=== PATIENT | male | born 1965 | race Asian ===

== ENCOUNTER 2018-07-20 16:03 | Inpatient (IN) | payer OTHER ==
[~2018-07-20] VITALS: Ht 157.5 cm; Wt 54.8 kg
[2018-07-20] MEDS ORDERED: SOD CHLORIDE 0.9% 1,000 ML IV STA (17:09)
[2018-07-20] MEDS ORDERED: KETOROLAC 15 MG INJ IV STA (17:09)
[2018-07-20] MEDS ORDERED: ONDANSETRON 4 MG INJ IV STA (17:36)
--- NOTE | 2018-07-20 17:39 | ERD ---
ER Documentation Chief Complaint Chief Complaint abdominal pain - pt accidentally swallowed a (pesticide) @ 3 am HPI 52-year-old man complains of generalized abdominal pain and nausea since last night he attributes his symptoms to pesticide that was accidentally sprayed over his coffee. He drank the coffee and states his symptoms got worse after that. He also complains of dry mouth and dry throat. Patient denies sialorrhea, no difficulty swallowing, no loss of consciousness, no fevers or chills, no headache or blurry vision. Patient has a history of hypertension and is noncompliant with his medication ROS All systems reviewed and are negative except as per history of present illness. Allergies Allergies: Coded Allergies: No Known Allergy (Unverified , 07/20/18) PMhx/Soc Hypertension FmHx Family History: No diabetes Physical Exam Vitals Vital Signs Date Temp Pulse Resp B/P (MAP) Pulse Ox O2 O2 Flow FiO2 Time Delivery Rate 07/20/18 98.5 127 23 212/103 97 Nasal 21:30 (139) Cannula 07/20/18 105 25 209/117 97 Nasal 19:30 (147) Cannula 07/20/18 98.2 128 28 165/93 97 16:05 (117) Physical Exam GENERAL: Well-developed, well-nourished, appears dehydrated, afebrile HEENT: Dry mucous membranes, pink conjunctiva, no cervical spine tenderness or step-off deformities, no goiter, no jaundice or icterus, extraocular movements intact without pain. No submandibular induration, and no pharyngeal erythema NEURO: Alert and oriented 3, cranial nerves II through XII intact bilaterally, pupils equal round reactive to light, no focal deficits or facial asymmetry, sensation intact distally Strength 5/5 in upper and lower extremities bilate rally CARDIAC: Tachycardic and regular, no murmurs rubs or gallops LUNGS: Clear bilaterally no wheezing crackles or stridor ABDOMEN: Voluntary guarding, mild diffuse tenderness, no masses, no rebound, no psoas sign SKIN: Warm and dry to touch, no abrasions, contusions, or hematomas, no lacerations, no ecchymosis, no target lesions, and without ulcers EXTREMITIES: No clubbing cyanosis or edema, calves are bilaterally symmetrical, no Homans sign, no popliteal cord sign. Distal pulses equal and bilateral PSYCH: Normal affect without agitation or irritability Result Diagram: 07/20/18 1716 07/20/18 1716 Results 24 hrs Laboratory Tests Test 07/20/18 17:16 07/20/18 18:31 07/20/18 19:45 White Blood Count 24.1 10^3/ul Red Blood Count 5.91 10^6/ul Hemoglobin 17.2 g/dl Hematocrit 50.6 % Mean Corpuscular Volume 85.6 fl Mean Corpuscular Hemoglobin 29.1 pg Mean Corpuscular Hemoglobin Concent 34.0 g/dl Red Cell Distribution Width 13.7 % Platelet Count 183 10^3/UL Mean Platelet Volume 11.1 fl Immature Granulocytes % 0.700 % Neutrophils % 89.0 % Segmented Neutrophils % (Manual) 90 % Lymphocytes % 4.3 % Lymphocytes % (Manual) 4 % Monocytes % 5.8 % Monocytes % (Manual) 6 % Eosinophils % 0.0 % Basophils % 0.2 % Nucleated Red Blood Cells % 0.0 /100WBC Immature Granulocytes # 0.160 10^3/ul Neutrophils # 21.4 10^3/ul Lymphocytes (Manual) 0.9 10^3/ul Lymphocytes # 1.0 10^3/ul Monocytes # 1.4 10^3/ul Monocytes # (Manual) 1.4 10^3/ul Eosinophils # 0.0 10^3/ul Basophils # 0.1 10^3/ul Nucleated Red Blood Cells # 0.0 10^3/ul Anisocytosis 1+ Microcytosis 1+ Sodium Level 140 mmol/L Potassium Level 3.8 mmol/L Chloride Level 98 mmol/L Carbon Dioxide Level 25 mmol/L Anion Gap 17 Blood Urea Nitrogen 23 mg/dl Creatinine 1.56 mg/dl Est Glomerular Filtrat Rate mL/min 47 mL/min Glucose Level 183 mg/dl Calcium Level 10.2 mg/dl Total Bilirubin 0.9 mg/dl Direct Bilirubin 0.00 mg/dl Indirect Bilirubin 0.9 mg/dl Aspartate Amino Transf (AST/SGOT) 33 IU/L Alanine Aminotransferase (ALT/SGPT) < 6 IU/L Alkaline Phosphatase 166 IU/L Troponin I 0.062 ng/ml Total Protein 9.7 g/dl Albumin 4.9 g/dl Globulin 4.80 g/dl Albumin/Globulin Ratio 1.02 Lipase 142 U/L Ethyl Alcohol Level < 10.0 mg/dl Free Thyroxine 1.91 ng/dl Urine Opiates Screen Negative Urine Barbiturates Negative Urine Amphetamines Screen Negative Urine Benzodiazepines Screen Negative Urine Cocaine Screen Negative Urine Cannabinoids Positive Current Medications Medications Dose Sig/Loi Start Time Status Last (Trade) Ordered Route PRN Stop Time Admin Dose Reason Admin Sodium 1,000 ml @ Q1H STAT 07/20/18 DC 07/20/18 Chloride 1,000 mls/hr IV 17:09 07/20/18 17:58 18:08 Ketorolac 15 mg ONCE STAT 07/20/18 DC 07/20/18 Tromethamine IV 17:09 07/20/18 17:56 (Toradol) 17:10 Ondansetron 4 mg ONCE STAT 07/20/18 DC 07/20/18 HCl (Zofran IV 17:36 07/20/18 17:56 Inj) 17:37 Enalaprilat 1.25 mg ONCE ONCE 07/20/18 DC 07/20/18 (Vasotec Iv) IV 18:00 07/20/18 18:32 18:01 Lorazepam 0.5 mg ONCE STAT 07/20/18 DC (Ativan) IV 18:31 07/20/18 18:50 Nicardipine 30 mg ONCE ONCE 07/20/18 DC HCl PO 20:00 07/20/18 (Cardene) 20:00 Nicardipine 30 mg ONCE ONCE 07/20/18 DC 07/20/18 HCl PO 19:40 07/20/18 19:44 (Cardene) 19:41 IV Flush 3 ml PER 07/20/18 (NS 3 ml) PROTOCOL IV 21:30 Ondansetron 4 mg Q6H PRN 07/20/18 HCl (Zofran IV 21:30 Inj) NAUSEA/VOMITI NG 650 mg Q6H PRN 07/20/18 Acetaminophen PO .PAIN 1-3 21:30 (Tylenol OR TEMP Tab) 1 tab Q6H PRN 07/20/18 Acetaminophen PO .MOD PAIN 21:30 / 4-6 Hydrocodone Bitart ([place] (5/325)) Morphine 2 mg Q4H PRN 07/20/18 Sulfate IV .SEVERE 21:30 (morphine) PAIN 7-10 Docusate 100 mg Q12H PRN 07/20/18 Sodium PO 21:30 (Colace) .CONSTIPATION Magnesium 30 ml DAILY PRN 07/20/18 Hydroxide PO 21:30 (Milk Of Mag) .CONSTIPATION Heparin 5,000 unit Q12 SC 07/21/18 Sodium 09:00 (Porcine) (Heparin (5000 Units/1ml)) Sodium 1,000 ml @ [id number] IV 07/20/18 Chloride 75 mls/hr 21:11 Lorazepam 0.5 mg Q6H PRN 07/20/18 (Ativan) IV ANXIETY 21:30 Albuterol/ 3 ml Q4H RESP 07/20/18 Ipratropium THERAPY PRN 21:30 (Duoneb) HHN SHORTNESS OF BREATH Hydralazine 10 mg Q6H PRN 07/20/18 07/20/18 HCl IV ELEVATED 21:30 21:34 (Apresoline) BLOOD PRESSURE 1 tab Q5M PRN 07/20/18 Nitroglycerin SL ANGINA 21:30 (Nitroglyceri n (Sl Tab) 0.4 Mg) 150 ml @ Q24H IVPB 07/20/18 Levofloxacin/ 100 mls/hr 21:30 Dextrose Procedures/MDM IV line was established patient was placed on cardiac cath technologist rhythm strip revealed a sinus tachycardia at 130 bpm with upright P and T waves. Patient was afebrile I administered 1 L normal saline IV, Toradol 15 mg IV, Zofran 4 mg IV Chest X-ray 1V Interpreted by me: Soft Tissue: No acute abnormalities Bones: No acute abnormalities Mediastinum/Cardiac Silhouette/Lungs: No acute abnormalities CBC was normal, electrolytes revealed acute kidney injury, liver function tests were normal, troponin was negative. Urinalysis drug screen positive for cannabinoids, ethanol level negative EKG performed, read by me revealed a sinus tachycardia 125 bpm, normal axis, narrow QRS complex, no concerning ST elevations or depressions noted Patient was hypertensive and I administered enalapril 1.25 mg IV x1 later followed by nicardipine 30 mg p.o. for continued hypertension CT scan of the abdomen pelvis was performed, IMPRESSION: 1. Right testis within the right inguinal canal. Correlate for undescended or retractile testis. 2. Small bilateral nonobstructive renal stones. No hydroureteronephrosis. 3. Probable cholelithiasis. No CT evidence of acute cholecystitis. 4. No evidence of acute inflammatory changes. No evidence of bowel obstruction. 5. Infrarenal abdominal aortic aneurysm measuring up to 3.2 cm. Recommend follow-up imaging in 3 years. 6. 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 Critical Care: Time: 43 minutes, this was time separate from other billable procedures. Treatments/Evaluations: Close monitoring and treatment of unstable vital signs, cardiorespiratory, and neurologic status, while maintaining tight balance of fluid, respiratory, and cardiac interventions. Patient has lymphocytosis and continued severe elevated blood pressure and will be admitted to telemetry for continued medical management, cardiology consultation, BP control. Departure Diagnosis: Primary Impression: Acute kidney injury Additional Impressions: Hypertensive emergency Aneurysm of infrarenal abdominal aorta Leukocytosis Leukocytosis type: lymphocytosis Qualified Codes: D72.820 - Lymphocytosis (symptomatic) Rib lesion Condition: Fair COLTON ASH MD Jul 20, 2018 17:39
[2018-07-20] MEDS ORDERED: ENALAPRILAT 1.25 MG INJ IV ONE (18:00)
[2018-07-20] MEDS ORDERED: LORAZEPAM 2 MG INJ IV STA (18:31)
[2018-07-20] MEDS ORDERED: NICARDipine HCL 30 MG CAPSULE PO ONE ×2 (19:40→20:00)
[2018-07-20] MEDS ORDERED: ALBUTEROL/IPRATROPIUM (NEB) 3 ML AMP HHN PRN (21:30)
[2018-07-20] MEDS ORDERED: hydrALAzine 20 MG INJ IV PRN (21:30)
[2018-07-20] MEDS ORDERED: NITROGLYCERIN (SL) 0.4 MG TAB SL PRN (21:30)
[2018-07-20] MEDS ORDERED: MAGNESIUM HYDROXIDE 30ML CUP PO PRN (21:30)
[2018-07-20] MEDS ORDERED: NACL 0.9% 3 ML SYG IV SCH (21:30)
[2018-07-20] MEDS ORDERED: LORAZEPAM 2 MG INJ IV PRN (21:30)
[2018-07-20] MEDS ORDERED: DOCUSATE SODIUM 100 MG CAP PO PRN (21:30)
[2018-07-20] MEDS ORDERED: ACETAMINOPHEN 325 MG TAB PO PRN (21:30)
[2018-07-20] MEDS: SOD CHLORIDE 0.45% 1,000 ML IV SCH (22:37)
[2018-07-20] MEDS: LEVOFLOXACIN 750MG/D5W (PMX) 150 ML IVPB SCH (22:38)
[2018-07-20] MEDS: morphine 2 MG INJ IV PRN (22:43)
[2018-07-20] MEDS: ONDANSETRON 4 MG INJ IV PRN (22:43)
[2018-07-21] VITALS (9 sets, daily range): BP systolic 127–197; BP diastolic 83–102; PULSE 77–126; RESP 18–20; Ht 157.5 cm; Wt 54.8 kg
[2018-07-21] MEDS ORDERED: hydrALAzine 20 MG INJ ONE (04:24)
--- NOTE | 2018-07-21 04:26 | HP ---
Date/Time of Note Date/Time of Note DATE: 07/21/18 TIME: 04:17 Assessment/Plan VTE Prophylaxis SCD applied (from Nsg): No SCD contraindicated: other Pharmacological prophylaxis: heparin Lines/Catheters IV Catheter Type (from Nrs): Saline Lock Assessment/Plan Hospital Course Assessment and plan: 52-year-old man past medical history of hypertension who presents with abdominal pain, with signs of renal insufficiency, leukocytosis, and hypertensive emergency. 1. Hypertensive emergency: Again patient apparently noncompliant with his home blood pressure medicines, systolic blood pressure in the 200 range on admission -Continue hydralazine IV every 4 hours as needed systolic rate of 160, get cardiology consult, follow-up TSH, A1c, lipid panel -We will check echocardiogram and try to get patient's home medication list -We will start patient on some p.o. blood pressure medicines in the meantime 2. Leukocytosis: Chest x-ray did not show any signs of any acute infections, nor did CT scan abdomen pelvis. UA negative as well for infection -Monitor for now, consider low-dose IV fluids -Could be secondary to dehydration, follow-up CBC in the a.m. 3. Renal insufficiency: Again creatinine 1.5 range, unclear what his baseline is -Continue IV fluids, will obtain renal consult Result Diagram: 07/20/18 1716 07/20/18 1716 Results 24hrs Laboratory Tests Test 07/20/18 17:16 07/20/18 18:31 07/20/18 19:45 White Blood Count 24.1 H Red Blood Count 5.91 Hemoglobin 17.2 Hematocrit 50.6 Mean Corpuscular Volume 85.6 Mean Corpuscular Hemoglobin 29.1 Mean Corpuscular 34.0 Hemoglobin Concent Red Cell Distribution Width 13.7 Platelet Count 183 Mean Platelet Volume 11.1 H Immature Granulocytes % 0.700 H Neutrophils % 89.0 H Segmented Neutrophils % (Manual) 90 H Lymphocytes % 4.3 L Lymphocytes % (Manual) 4 L Monocytes % 5.8 Monocytes % (Manual) 6 Eosinophils % 0.0 Basophils % 0.2 Nucleated Red Blood Cells % 0.0 Immature Granulocytes # 0.160 H Neutrophils # 21.4 H Lymphocytes (Manual) 0.9 Lymphocytes # 1.0 Monocytes # 1.4 H Monocytes # (Manual) 1.4 H Eosinophils # 0.0 Basophils # 0.1 Nucleated Red Blood Cells # 0.0 Anisocytosis 1+ Microcytosis 1+ Sodium Level 140 Potassium Level 3.8 Chloride Level 98 Carbon Dioxide Level 25 Anion Gap 17 H Blood Urea Nitrogen 23 H Creatinine 1.56 H Est Glomerular Filtrat 47 L Rate mL/min Glucose Level 183 Calcium Level 10.2 Total Bilirubin 0.9 Direct Bilirubin 0.00 Indirect Bilirubin 0.9 Aspartate Amino 33 Transf (AST/SGOT) Alanine < 6 L Aminotransferase (ALT/SGPT) Alkaline Phosphatase 166 H Troponin I 0.062 Total Protein 9.7 H Albumin 4.9 Globulin 4.80 H Albumin/Globulin Ratio 1.02 Lipase 142 Ethyl Alcohol Level < 10.0 H Free Thyroxine 1.91 H Urine Color YELLOW Urine Clarity SLIGHTLY CLOUDY A Urine pH 6.0 Urine Specific [place] 1.019 Urine Ketones NEGATIVE Urine Nitrite NEGATIVE Urine Bilirubin NEGATIVE Urine Urobilinogen NEGATIVE Urine Leukocyte Esterase NEGATIVE Urine Microscopic RBC 44 H Urine Microscopic WBC 2 Urine Mucus FEW A Urine Hemoglobin 2+ H Urine Glucose 1+ H Urine Total Protein 3+ H Urine Opiates Screen Negative Urine Barbiturates Negative Urine Amphetamines Screen Negative Urine Benzodiazepines Screen Negative Urine Cocaine Screen Negative Urine Cannabinoids Positive HPI/ROS Admit Date/Time Admit Date/Time Hx of Present Illness 52-year-old man past medical history of hypertension who presents with abdominal pain. Patient also complained of nausea, both of these symptoms occurred since last night. Apparently he also stated he attributed his symptoms to pesticide t hat was accidentally sprayed over his coffee. He drank the coffee and states his symptoms got worse after that. Patient has some dry mouth and dry throat as well.. Patient denies difficulty swallowing, no loss of consciousness, no fevers or chills, no headache or blurry vision. Patient has a history of hypertension and is noncompliant with his medication. When he came into the ER today he was found with creatinine 1.56, white blood cell count 24, and he had signs of hypertensive emergency systolic blood pressure in the 200 range. He was given multiple doses of antihypertensive medicines and presently the heart rate is somewhat tachycardic, but the systolic blood pressure still hovering around 170-190 range. PMH/Family/Social Past Medical History Medications Current Medications IV Flush (NS 3 ml) 3 ml PER PROTOCOL IV ; Start 07/20/18 at 21:30 Ondansetron HCl (Zofran Inj) 4 mg Q6H PRN IV NAUSEA/VOMITING Last administered on 07/20/18 22:43; Admin Dose 4 MG; Start 07/20/18 at 21:30 Acetaminophen (Tylenol Tab) 650 mg Q6H PRN PO .PAIN 1-3 OR TEMP; Start 07/20/18 at 21:30 Acetaminophen/ Hydrocodone Bitart ([place] (5/325)) 1 tab Q6H PRN PO .MOD PAIN 4- 6; Start 07/20/18 at 21:30 Morphine Sulfate (morphine) 2 mg Q4H PRN IV .SEVERE PAIN 7-10 Last administered on 07/20/18 22:43; Admin Dose 2 MG; Start 07/20/18 at 21:30 Docusate Sodium (Colace) 100 mg Q12H PRN PO .CONSTIPATION; Start 07/20/18 at 21:30 Magnesium Hydroxide (Milk Of Mag) 30 ml DAILY PRN PO .CONSTIPATION; Start 07/20/18 at 21:30 Heparin Sodium (Porcine) (Heparin (5000 Units/1ml)) 5,000 unit Q12 SC ; Start 07/21/18 at 09:00 Sodium Chloride 1,000 ml @ 75 mls/hr [id number] IV Last administered on 07/20/18 22:37; Admin Dose 75 MLS/HR; Start 07/20/18 at 21:11 Lorazepam (Ativan) 0.5 mg Q6H PRN IV ANXIETY Last administered on 07/20/18 22:54; Admin Dose 0.5 MG; Start 07/20/18 at 21:30 Albuterol/ Ipratropium (Duoneb) 3 ml Q4H RESP THERAPY PRN HHN SHORTNESS OF BREATH; Start 07/20/18 at 21:30 Hydralazine HCl (Apresoline) 10 mg Q6H PRN IV ELEVATED BLOOD PRESSURE Last administered on 07/20/18 21:34; Admin Dose 10 MG; Start 07/20/18 at 21:30 Nitroglycerin (Nitroglycerin (Sl Tab) 0.4 Mg) 1 tab Q5M PRN SL ANGINA; Start 07/20/18 at 21:30 Levofloxacin/ Dextrose 150 ml @ 100 mls/hr Q24H IVPB Last administered on 07/20/18 22:38; Admin Dose 100 MLS/HR; Start 07/20/18 at 21:30 Coded Allergies: No Known Allergy (Unverified , 07/20/18) Past Surgical History Past Surgical Hx: no surgical history Social History Alcohol Use: none Smoking Status: Current some day smoker Drug Use: none Exam/Review of Systems Vital Signs Vitals Vital Signs Date Temp Pulse Resp B/P (MAP) Pulse Ox O2 O2 Flow FiO2 Time Delivery Rate 07/21/18 121 23 171/97 97 Nasal 01:30 (121) Cannula 07/20/18 98.5 21:30 Exam Exam GENERAL: lying in bed, lethargic HEENT: Pupils equal, round, and reactive to light. EOMI. NECK: Supple LUNGS: Clear to auscultation bilaterally HEART: Tachycardic heart rate ABDOMEN: Soft, slightly tender to palpation, non-distended. Positive bowel sounds in all four quadrants. No rebound or guarding. EXTREMITIES: No lower extremity edema bilaterally NEURO: No focal deficits EMIL DANIELS Jul 21, 2018 04:26
[2018-07-21] MEDS: hydrALAzine 20 MG INJ IV PRN ×2 (04:28→21:46)
[2018-07-21] MEDS: AMLODIPINE 10 MG TAB PO SCH (04:33)
[2018-07-21] MEDS ORDERED: LABETALOL HCL 20MG INJ IV ONE (08:00)
[2018-07-21] MEDS: SOD CHLORIDE 0.45% 1,000 ML IV SCH ×2 (09:54→23:05)
[2018-07-21] MEDS: ONDANSETRON 4 MG INJ IV PRN (09:55)
[2018-07-21] MEDS: morphine 2 MG INJ IV PRN (09:55)
[2018-07-21] MEDS: HEPARIN 5,000 UNIT/1 ML VIAL SC SCH ×2 (09:58→20:52)
--- NOTE | 2018-07-21 11:27 | CONS ---
DATE OF ADMISSION: 07/20/2018 DATE OF CONSULTATION: TYPE OF CONSULTATION: Nephrology. REASON FOR CONSULTATION: Acute kidney injury, possible CKD. REQUESTING PHYSICIAN: Emil Daniels MD. HISTORY OF PRESENT ILLNESS: This is a 52-year-old male with a past medical history of hypertension, who presents to [facility] with complaints of abdominal pain. The patient states h is symptoms began approximately 24 hours ago, which he initially attributed to accidental pesticide i ntegrated over his coffee. Patient states that he developed dry mouth. Denied any blurred vision. The patient, as a result of progression of symptoms, came to the emergency room. Upon arrival, patie nt noted to have a white count of 24,000 and creatinine 1.56. Patient has systolic pressures greater than 200. The patient was given antihypertensive medications and admitted to telemetry for evaluati on. Regarding the patient's renal history, the patient denies ever having any history of acute kidney inj ury or CKD. Patient does admit to having longstanding hypertension. Patient does not remember the l ast he went to see a physician. He denies hemoptysis, hematemesis, hematochezia. PAST MEDICAL HISTORY: History of hypertension. ALLERGIES: NO KNOWN DRUG ALLERGIES. FAMILY HISTORY: No family history of kidney disease. SOCIAL HISTORY: Does not drink, smoke, or do drugs. MEDICATIONS: The patient's medications have been reviewed. PAST SURGICAL HISTORY: Has been reviewed. REVIEW OF SYSTEMS: A 14-point review of systems was conducted. Pertinent positives stated in the HP I, otherwise negative. PHYSICAL EXAMINATION: VITAL SIGNS: Blood pressure is 197/96, respirations 20, pulse 126, temperature 98.4. HEENT: Head is normocephalic. NECK: Supple. HEART: Regular rate. LUNGS: Show diminished breath sounds at the base. ABDOMEN: Soft, nontender to palpation without rebound or guarding. EXTREMITIES: Negative for clubbing, cyanosis, no edema. DERMATOLOGIC: No rashes. MUSCULOSKELETAL: No joint effusion. NEUROLOGIC: No focal deficits. LABORATORY DATA: Has been reviewed. Urinalysis has been reviewed. CT scan of abdomen and pelvis pop s been reviewed. ASSESSMENT AND PLAN: This is a 60-year-old male who presents with: 1. Nonoliguric acute kidney injury with unknown baseline creatinine. Etiology of current acute kidn ey injury is likely secondary to hemodynamics, possible tubular injury due to hypertensive urgency. The possibility of acute glomerulonephritis or vasculitis is less likely given the patient's clinical presentation. Possibility of interstitial nephritis is a consideration given possible environmental exposure of pesticide. Our recommendation at this point would be to repeat a UA with microanalysis. We will quantify the patient's proteinuria. We will check a renal ultrasound to evaluate renal par enchyma. We would continue current blood pressure regimen but monitor closely to avoid significant h emodynamic fluctuations. Would recommend to prevent no more than 25% reduction in systolic pressure in the first 24 hours. Otherwise, continue current treatment plan, renally dose all meds, avoid neph rotoxins. I would also recommend to avoid any NSAIDs, ARBs, or DANA inhibitors at this time. 2. Hypertensive urgency. Etiology may be secondary to medical noncompliance. Would do a full evalu ation. We will check a 2D echo. We will follow up renal ultrasound to evaluate for any signs of heather l artery stenosis. Would continue current blood pressure regimen. Avoid any DANA inhibitor or ARBs a t this time. Avoid any significant hemodynamic fluctuations if possible. 3. Mineral bone disorder, monitor calcium and phosphorus levels. 4. Leukocytosis. Etiology is unclear, possibly reactive. Continue to monitor. Follow up with CBC. Thank you Dr. Daniels for this interesting consult. It will be a pleasure to follow the patient with yo u. Dictated By: STEFANIA FRANKLIN DO NR/NTS Conf#: [id number] DID#: [id number] CC: EMIL DANIELS;*EndCC*
[2018-07-21] MEDS: HYDROCODONE/APAP (5/325) TAB PO PRN ×2 (11:33→23:38)
--- NOTE | 2018-07-21 13:39 | PSY ---
Date/Time of Note Date/Time of Note DATE: 07/21/18 TIME: 13:33 Psychiatric Subjective Eval Consent Pt consented to telemedicine: No Subjective Evaluation Patient location: inpatient Chief Complaint: abdominal pain - pt accidentally swallowed a (pesticide) @ 3 am History of present illness Patient is an 52-year-old male with past medical history of hypertension who presents with abdominal pain, leukocytosis, and hypertensive emergency. Patient does not speak Occitan translation done by the translating machine for both the social work and mental health unit lead psychologist. With patient's permission spoke to the son who states patient has long history of mental illness but has been noncompliant with medication, son also explained that patient has been increasingly suspicious and paranoid and constantly thinking that people are plotting to kill him. Patient believes his mother and boyfriend have plotted to poison him he has poor impulse control poor coping skills. He cannot process information, so consented to prescribing patient antipsychotic to help him with his delusion. Past psychiatric history History of mental illness Hospitalization: other Medical history Problems Medical Problems: (1) Acute kidney injury Status: Acute (2) Aneurysm of infrarenal abdominal aorta Status: Acute (3) Hypertensive emergency Status: Acute (4) Leukocytosis Status: Acute (5) Rib lesion Status: Acute Allergies: Coded Allergies: No Known Allergies (Verified Allergy, Unknown, 07/21/18) Substance Abuse Substance abuse history: No Prior substance abuse treatmen: No Social History Marital status: other DPA/Conservatorship: No Psychiatric Objective Eval Review of Systems: Review of Systems: Not Applicable Physical Examination: Appetite: Adequate Energy: Adequate Interest: Adequate Mental Status Examination: Appearance: Poor Hygiene Eye Contact: Fair Psychomotor Activity: Agitated Behavior: Suspicious Speech: Soft AFFECT: Constricted Though Process: Tangential, Other Thought Content: Hallucinations Suicidal: No Homicidal: No On 72 hour hold: No Insight: Mild Judgement: Mild Attention Span: Distractible Laboratory Results Laboratory Tests Test 07/20/18 17:16 07/20/18 18:31 07/20/18 19:45 07/21/18 06:07 White Blood Count 24.1 10^3/ul 24.8 10^3/ul Red Blood Count 5.91 10^6/ul 5.46 10^6/ul Hemoglobin 17.2 g/dl 15.5 g/dl Hematocrit 50.6 % 46.4 % Mean Corpuscular 85.6 fl 85.0 fl Volume Mean Corpuscular 29.1 pg 28.4 pg Hemoglobin Mean Corpuscular 34.0 g/dl 33.4 g/dl Hemoglobin Concen t Red Cell 13.7 % 14.2 % Distribution Width Platelet Count 183 10^3/UL 160 10^3/UL Mean Platelet 11.1 fl 12.0 fl Volume Immature 0.700 % 1.000 % Granulocytes % Neutrophils % 89.0 % 84.0 % Segmented 90 % Neutrophils % (Manual) Lymphocytes % 4.3 % 4.9 % Lymphocytes % 4 % (Manual) Monocytes % 5.8 % 9.9 % Monocytes % 6 % (Manual) Eosinophils % 0.0 % 0.0 % Basophils % 0.2 % 0.2 % Nucleated Red 0.0 /100WBC 0.0 /100WBC Blood Cells % Immature 0.160 10^3/ul 0.240 10^3/ul Granulocytes # Neutrophils # 21.4 10^3/ul 20.9 10^3/ul Lymphocytes 0.9 10^3/ul (Manual) Lymphocytes # 1.0 10^3/ul 1.2 10^3/ul Monocytes # 1.4 10^3/ul 2.5 10^3/ul Monocytes # 1.4 10^3/ul (Manual) Eosinophils # 0.0 10^3/ul 0.0 10^3/ul Basophils # 0.1 10^3/ul 0.0 10^3/ul Nucleated Red 0.0 10^3/ul 0.0 10^3/ul Blood Cells # Anisocytosis 1+ Microcytosis 1+ Sodium Level 140 mmol/L 136 mmol/L Potassium Level 3.8 mmol/L 3.7 mmol/L Chloride Level 98 mmol/L 102 mmol/L Carbon Dioxide 25 mmol/L 22 mmol/L Level Anion Gap 17 12 Blood Urea 23 mg/dl 30 mg/dl Nitrogen Creatinine 1.56 mg/dl 2.02 mg/dl Est Glomerular 47 mL/min 35 mL/min Filtrat Rate mL/min Glucose Level 183 mg/dl 140 mg/dl Calcium Level 10.2 mg/dl 9.2 mg/dl Total Bilirubin 0.9 mg/dl Direct Bilirubin 0.00 mg/dl Indirect 0.9 mg/dl Bilirubin Aspartate Amino 33 IU/L Transf (AST/SGOT) Alanine < 6 IU/L Aminotransferase (ALT/SGPT) Alkaline 166 IU/L Phosphatase Troponin I 0.062 ng/ml Total Protein 9.7 g/dl Albumin 4.9 g/dl Globulin 4.80 g/dl Albumin/Globulin 1.02 Ratio Lipase 142 U/L Ethyl Alcohol < 10.0 mg/dl Level Free Thyroxine 1.91 ng/dl Urine Color YELLOW Urine Clarity SLIGHTLY CLOUDY Urine pH 6.0 Urine Specific 1.019 Orange Urine Ketones NEGATIVE mg/dL Urine Nitrite NEGATIVE mg/dL Urine Bilirubin NEGATIVE mg/dL Urine NEGATIVE mg/dL Urobilinogen Urine Leukocyte NEGATIVE Krish/ul Esterase Urine Microscopic 44 /HPF RBC Urine Microscopic 2 /HPF WBC Urine Mucus FEW /HPF Urine Hemoglobin 2+ mg/dL Urine Glucose 1+ mg/dL Urine Total 3+ mg/dl Protein Urine Opiates Negative Screen Urine Negative Barbiturates Urine Negative Amphetamines Screen Urine Negative Benzodiazepines Screen Urine Cocaine Negative Screen Urine Positive Cannabinoids Hemoglobin A1c 5.5 % Phosphorus Level 4.3 mg/dl Magnesium Level 1.7 mg/dl Triglycerides 107 mg/dl Level Cholesterol Level 177 mg/dl LDL Cholesterol, 95 mg/dl Calculated HDL Cholesterol 61 mg/dl Cholesterol/HDL 2.9 RATIO Ratio Thyroid 0.672 MIU/L Stimulating Hormone (TSH) Assessment and Plan Assessment/Diagnosis 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 Caregiver/Family Education Provide supportive therapy Discharge Disposition: Other Legal Status: Voluntary (Does not meet criteria for 5150 hold) TOMMIE KEYS NP Jul 21, 2018 13:39
--- NOTE | 2018-07-21 15:06 | PN ---
Date/Time of Note Date/Time of Note DATE: 07/21/18 TIME: 15:02 Assessment/Plan VTE Prophylaxis Risk score (from Nsg)>0 risk: 1 Pharmacological prophylaxis: heparin Lines/Catheters IV Catheter Type (from Nrsg): Peripheral IV Assessment/Plan Hospital Course Assessment and plan: 52-year-old man past medical history of hypertension who presents with abdominal pain, with signs of renal insufficiency, leukocytosis, and hypertensive emergency. 1. Hypertensive emergency: Again patient apparently noncompliant with his home blood pressure medicines, systolic blood pressure in the 200 range on admission Continue hydralazine and Norvasc, BP currently improved Hydralazine as needed Follow-up on echo 2. Leukocytosis: Chest x-ray did not show any signs of any acute infections, nor did CT scan abdomen pelvis. UA negative as well for infection Monitor Continue Levaquin for now 3. Acute versus chronic kidney disease also secondary to hypertension Nephrology consultation appreciated Prophylaxis: Heparin Result Diagram: 07/21/18 0607 07/21/18 0607 Results 24hrs Laboratory Tests Test 07/20/18 17:16 07/20/18 18:31 07/20/18 19:45 07/21/18 06:07 White Blood Count 24.1 H 24.8 H Red Blood Count 5.91 5.46 Hemoglobin 17.2 15.5 Hematocrit 50.6 46.4 Mean Corpuscular 85.6 85.0 Volume Mean Corpuscular 29.1 28.4 L Hemoglobin Mean Corpuscular 34.0 33.4 Hemoglobin Concent Red Cell 13.7 14.2 Distribution Width Platelet Count 183 160 Mean Platelet 11.1 H 12.0 H Volume Immature 0.700 H 1.000 H Granulocytes % Neutrophils % 89.0 H 84.0 H Segmented 90 H Neutrophils % (Manual) Lymphocytes % 4.3 L 4.9 L Lymphocytes % 4 L (Manual) Monocytes % 5.8 9.9 Monocytes % 6 (Manual) Eosinophils % 0.0 0.0 Basophils % 0.2 0.2 Nucleated Red 0.0 0.0 Blood Cells % Immature 0.160 H 0.240 H Granulocytes # Neutrophils # 21.4 H 20.9 H Lymphocytes 0.9 (Manual) Lymphocytes # 1.0 1.2 Monocytes # 1.4 H 2.5 H Monocytes # 1.4 H (Manual) Eosinophils # 0.0 0.0 Basophils # 0.1 0.0 Nucleated Red 0.0 0.0 Blood Cells # Anisocytosis 1+ Microcytosis 1+ Sodium Level 140 136 Potassium Level 3.8 3.7 Chloride Level 98 102 Carbon Dioxide 25 22 Level Anion Gap 17 H 12 Blood Urea 23 H 30 H Nitrogen Creatinine 1.56 H 2.02 H Est Glomerular 47 L 35 L Filtrat Rate mL/min Glucose Level 183 140 # Calcium Level 10.2 9.2 Total Bilirubin 0.9 Direct Bilirubin 0.00 Indirect Bilirubin 0.9 Aspartate Amino 33 Transf (AST/SGOT) Alanine < 6 L Aminotransferase ( ALT/SGPT) Alkaline 166 H Phosphatase Troponin I 0.062 Total Protein 9.7 H Albumin 4.9 Globulin 4.80 H Albumin/Globulin 1.02 Ratio Lipase 142 Ethyl Alcohol < 10.0 H Level Free Thyroxine 1.91 H Urine Color YELLOW Urine Clarity SLIGHTLY CLOUDY A Urine pH 6.0 Urine Specific 1.019 [place] Urine Ketones NEGATIVE Urine Nitrite NEGATIVE Urine Bilirubin NEGATIVE Urine Urobilinogen NEGATIVE Urine Leukocyte NEGATIVE Esterase Urine Microscopic 44 H RBC Urine Microscopic 2 WBC Urine Mucus FEW A Urine Hemoglobin 2+ H Urine Glucose 1+ H Urine Total 3+ H Protein Urine Opiates Negative Screen Urine Barbiturates Negative Urine Amphetamines Negative Screen Urine Negative Benzodiazepines Screen Urine Cocaine Negative Screen Urine Cannabinoids Positive Hemoglobin A1c 5.5 Phosphorus Level 4.3 Magnesium Level 1.7 Triglycerides 107 Level Cholesterol Level 177 LDL Cholesterol, 95 Calculated HDL Cholesterol 61 Cholesterol/HDL 2.9 Ratio Thyroid 0.672 Stimulating Hormone (TSH) Subjective 24 Hr Interval Summary Constitutional: no complaints Exam/Review of Systems Exam Vitals Vital Signs Date Temp Pulse Resp B/P (MAP) Pulse Ox O2 O2 Flow FiO2 Time Delivery Rate 07/21/18 Nasal 2.0 13:06 Cannula 07/21/18 90 12:01 07/21/18 98.4 18 152/91 97 11:36 (111) Constitutional: alert, oriented Respiratory: clear to auscultation Cardiovascular: regular rate and rhythm Gastrointestinal: soft; No distended Musculoskeletal: nl extremities to inspection Results Results 24hrs Laboratory Tests Test 07/20/18 17:16 07/20/18 18:31 07/20/18 19:45 07/21/18 06:07 White Blood Count 24.1 H 24.8 H Red Blood Count 5.91 5.46 Hemoglobin 17.2 15.5 Hematocrit 50.6 46.4 Mean Corpuscular 85.6 85.0 Volume Mean Corpuscular 29.1 28.4 L Hemoglobin Mean Corpuscular 34.0 33.4 Hemoglobin Concent Red Cell 13.7 14.2 Distribution Width Platelet Count 183 160 Mean Platelet 11.1 H 12.0 H Volume Immature 0.700 H 1.000 H Granulocytes % Neutrophils % 89.0 H 84.0 H Segmented 90 H Neutrophils % (Manual) Lymphocytes % 4.3 L 4.9 L Lymphocytes % 4 L (Manual) Monocytes % 5.8 9.9 Monocytes % 6 (Manual) Eosinophils % 0.0 0.0 Basophils % 0.2 0.2 Nucleated Red 0.0 0.0 Blood Cells % Immature 0.160 H 0.240 H Granulocytes # Neutrophils # 21.4 H 20.9 H Lymphocytes 0.9 (Manual) Lymphocytes # 1.0 1.2 Monocytes # 1.4 H 2.5 H Monocytes # 1.4 H (Manual) Eosinophils # 0.0 0.0 Basophils # 0.1 0.0 Nucleated Red 0.0 0.0 Blood Cells # Anisocytosis 1+ Microcytosis 1+ Sodium Level 140 136 Potassium Level 3.8 3.7 Chloride Level 98 102 Carbon Dioxide 25 22 Level Anion Gap 17 H 12 Blood Urea 23 H 30 H Nitrogen Creatinine 1.56 H 2.02 H Est Glomerular 47 L 35 L Filtrat Rate mL/min Glucose Level 183 140 # Calcium Level 10.2 9.2 Total Bilirubin 0.9 Direct Bilirubin 0.00 Indirect Bilirubin 0.9 Aspartate Amino 33 Transf (AST/SGOT) Alanine < 6 L Aminotransferase ( ALT/SGPT) Alkaline 166 H Phosphatase Troponin I 0.062 Total Protein 9.7 H Albumin 4.9 Globulin 4.80 H Albumin/Globulin 1.02 Ratio Lipase 142 Ethyl Alcohol < 10.0 H Level Free Thyroxine 1.91 H Urine Color YELLOW Urine Clarity SLIGHTLY CLOUDY A Urine pH 6.0 Urine Specific 1.019 [place] Urine Ketones NEGATIVE Urine Nitrite NEGATIVE Urine Bilirubin NEGATIVE Urine Urobilinogen NEGATIVE Urine Leukocyte NEGATIVE Esterase Urine Microscopic 44 H RBC Urine Microscopic 2 WBC Urine Mucus FEW A Urine Hemoglobin 2+ H Urine Glucose 1+ H Urine Total 3+ H Protein Urine Opiates Negative Screen Urine Barbiturates Negative Urine Amphetamines Negative Screen Urine Negative Benzodiazepines Screen Urine Cocaine Negative Screen Urine Cannabinoids Positive Hemoglobin A1c 5.5 Phosphorus Level 4.3 Magnesium Level 1.7 Triglycerides 107 Level Cholesterol Level 177 LDL Cholesterol, 95 Calculated HDL Cholesterol 61 Cholesterol/HDL 2.9 Ratio Thyroid 0.672 Stimulating Hormone (TSH) Medications Medication Current Medications IV Flush (NS 3 ml) 3 ml PER PROTOCOL IV ; Start 07/20/18 at 21:30 Ondansetron HCl (Zofran Inj) 4 mg Q6H PRN IV NAUSEA/VOMITING Last administered on 07/21/18 09:55; Admin Dose 4 MG; Start 07/20/18 at 21:30 Acetaminophen (Tylenol Tab) 650 mg Q6H PRN PO .PAIN 1-3 OR TEMP; Start 07/20/18 at 21:30 Acetaminophen/ Hydrocodone Bitart ([place] (5/325)) 1 tab Q6H PRN PO .MOD PAIN 4- 6 Last administered on 07/21/18 11:33; Admin Dose 1 TAB; Start 07/20/18 at 21:30 Morphine Sulfate (morphine) 2 mg Q4H PRN IV .SEVERE PAIN 7-10 Last administered on 07/21/18 09:55; Admin Dose 2 MG; Start 07/20/18 at 21:30 Docusate Sodium (Colace) 100 mg Q12H PRN PO .CONSTIPATION; Start 07/20/18 at 21:30 Magnesium Hydroxide (Milk Of Mag) 30 ml DAILY PRN PO .CONSTIPATION; Start 07/20/18 at 21:30 Heparin Sodium (Porcine) (Heparin (5000 Units/1ml)) 5,000 unit Q12 SC Last administered on 07/21/18 09:58; Admin Dose 5,000 UNIT; Start 07/21/18 at 09:00 Sodium Chloride 1,000 ml @ 75 mls/hr [id number] IV Last administered on 07/21/18 09:54; Admin Dose 75 MLS/HR; Start 07/20/18 at 21:11 Lorazepam (Ativan) 0.5 mg Q6H PRN IV ANXIETY Last administered on 07/20/18 22:54; Admin Dose 0.5 MG; Start 07/20/18 at 21:30 Albuterol/ Ipratropium (Duoneb) 3 ml Q4H RESP THERAPY PRN HHN SHORTNESS OF BREATH; Start 07/20/18 at 21:30 Nitroglycerin (Nitroglycerin (Sl Tab) 0.4 Mg) 1 tab Q5M PRN SL ANGINA; Start 07/20/18 at 21:30 Levofloxacin/ Dextrose 150 ml @ 100 mls/hr Q24H IVPB Last administered on 07/20/18at 22:38; Admin Dose 100 MLS/HR; Start 07/20/18 at 21:30 Hydralazine HCl (Apresoline) 10 mg Q4H PRN IV ELEVATED BLOOD PRESSURE Last administered on 07/21/18at 04:28; Admin Dose 10 MG; Start 07/21/18 at 04:30 Hydralazine HCl (Apresoline) 25 mg TID PO Last administered on 07/21/18 13:23; Admin Dose 25 MG; Start 07/21/18 at 04:30 Amlodipine Besylate (Norvasc) 10 mg DAILY PO Last administered on 07/21/18 04:33; Admin Dose 10 MG; Start 07/21/18 at 04:30 NITO GATES Jul 21, 2018 15:06
--- NOTE | 2018-07-21 15:42 | RADRPT ---
Echocardiogram Report Patient Name: SHARAD WILKINSPatient ID: [id number] : 1965 (52y 8m)Study Date: 07/21/2018 8:30:01 AM Gender: Bassemcession #: [id number] Tech: LE Location: [facility] Ref.Physician: EMIL DANIELS Height(Cm): BSA: Weight(Kg): Quality: GoodOrder Physician: EMIL DANIELS Account #: Procedures: Echocardiographic Report: Transthoracic echocardiogram with complete 2D, M-Mode, and doppler examination. Indications: Tachycardia. Measurements: 2D/M Mode Doppler Measurement Value Normal Range Measurement Value Normal Range LVIDd 2D 4.6 [ 4.2 - 5.8 ] cm AV Mean Gaetano 1.0 [ 70.0 - 90.0 ] cm/sec LVIDs 2D 3.9 [ 2.5 - 4.0 ] cm AV Mean PG 4.0 [ 2.0 - 4.0 ] mmHg LVPWd 2D 1.4 [ 0.6 - 1.0 ] cm AV Peak Gaetano 1.4 [ 100.0 - 170.0 ] cm/sec IVSd 2D 1.4 [ 0.6 - 1.0 ] cm AV Peak PG 8.0 [ 2.0 - 9.0 ] mmHg EF 2D 34.1 [ 52.0 - 72.0 ] percent AV VTI 22.2 cm LVOT Diam 2.1 [ 2.3 - 2.9 ] cm LVOT Peak Gaetano 1.1 [ 70.0 - 110.0 ] cm/sec LVOT Peak PG 5.0 [ 2.0 - 6.0 ] mmHg MV E Peak Gaetano 1.1 [ 60.0 - 130.0 ] cm/sec MV A Peak Gaetano 0.6 [ 100.0 - 120.0 ] cm/sec MV E/A 1.9 [ 0.8 - 1.5 ] ratio MV Decel Time 155 [ 104 - 258 ] msec Lat E` Gaetano 0.1 [ 10.0 - 15.0 ] cm/sec Lateral E/E` 10.4 [ 1.0 - 2.0 ] ratio Med E` Gaetano 0.1 cm/sec MV E/A 1.9 [ 0.8 - 1.5 ] ratio PV Peak Gaetano 0.9 [ 40.0 - 80.0 ] cm/sec PV Peak PG 3.0 mmHg Findings: Left Ventricle: Normal left ventricular systolic function. Normal left ventricular cavity size. Moderate concentric left ventricular hypertrophy. Ejection fraction is visually estimated at 55 %. Right Ventricle: Normal right ventricular size. Normal right ventricular systolic function. Left Atrium: There is mild enlargement of left atrium. Right Atrium: The right atrium is normal in size. Mitral Valve: Normal appearance and function of the mitral valve with trace physiologic regurgitation. Aortic Valve: Normal appearance of the aortic valve. No significant aortic stenosis with trivial insufficiency. Tricuspid Valve: Normal appearance and function of the tricuspid valve with trace physiologic regurgitation. Unable to obtain RVSP due to minimal presence of tricuspid regurgitation. Pulmonic Valve: Normal pulmonic valve appearance. No evidence of pulmonic regurgitation. Pericardium: Normal pericardium with no significant pericardial effusion. Aorta: Normal aortic root. IVC: Normal size and normal respiratory collapse consistent with normal right atrial pressure. Conclusions: Normal left ventricular systolic function. Normal left ventricular cavity size. Moderate concentric left ventricular hypertrophy. Ejection fraction is visually estimated at 55 %. No significant valvular stenosis or regurgitation seen. Unable to obtain RVSP due to minimal presence of tricuspid regurgitation.Normal size and normal respiratory collapse consistent with normal right atrial pressure. Electronically Signed By: Gabriel Christiansen 2018-07-21 15:41:18 PDT
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
[2018-07-21] MEDS: LEVOFLOXACIN 750MG/D5W (PMX) 150 ML IVPB SCH (20:42)
[2018-07-22] VITALS (9 sets, daily range): BP systolic 97–201; BP diastolic 63–113; PULSE 71–135; RESP 18–20
[2018-07-22] MEDS: SOD CHLORIDE 0.45% 1,000 ML IV SCH (04:44)
[2018-07-22] MEDS: morphine 2 MG INJ IV PRN (04:54)
[2018-07-22] MEDS ORDERED: LABETALOL HCL 20MG INJ IV ONE ×2 (05:00)
[2018-07-22] MEDS: AMLODIPINE 10 MG TAB PO SCH (09:47)
[2018-07-22] MEDS: HEPARIN 5,000 UNIT/1 ML VIAL SC SCH ×2 (09:48→20:43)
--- NOTE | 2018-07-22 12:04 | CONS ---
Assessment/Plan Assessment/Plan Hospital Course (Demo Recall) Hypertensive crisis: BP 209/117 on admission, now improved. Moderate LVH by echo but preserved EF. Acute on chronic renal failure: improved today ?insecticide poisoning Psychosis -continue amlodipine 10mg -hydralazine 50mg TID -labetalol 200mg BID Consultation Date/Type/Reason Admit Date/Time Jul 20, 2018 at 20:18 Initial Consult Date 07/21/18 Type of Consult Cardiology Requesting Provider: EMIL DANIELS Date/Time of Note DATE: 07/22/18 TIME: 12:03 24 HR Interval Summary Free Text/Dictation No events. BP high again this am but adjustments made and now 120s Exam/Review of Systems Vital Signs Vitals Vital Signs Date Temp Pulse Resp B/P (MAP) Pulse Ox O2 O2 Flow FiO2 Time Delivery Rate 07/22/18 98.4 108 18 122/74 94 11:28 (90) 07/22/18 Room Air 07:52 07/21/18 2.0 19:45 Intake and Output 07/21/18 07/21/18 07/22/18 1515:00 23:00 07:00 IntakeIntake Total 600 ml 400 ml OutputOutput Total 200 ml 700 ml BalanceBalance 600 ml -200 ml -300 ml Exam Constitutional: alert, oriented Psych: no complaints, nl mood/affect Head: normocephalic, atraumatic Neck: No jvd Respiratory: clear to auscultation; No crackles/rales Cardiovascular: regular rate and rhythm; No edema Gastrointestinal: soft, non-tender Neurological: nl mental status, nl speech Labs Result Diagram: 07/22/1851107/22/18 0512 Results 24hrs Laboratory Tests Test 07/21/18 14:40 07/22/18 05:12 Urine Color YELLOW Urine Clarity SLIGHTLY CLOUDY A Urine pH 5.0 Urine Specific [place] 1.019 Urine Ketones NEGATIVE Urine Nitrite NEGATIVE Urine Bilirubin NEGATIVE Urine Urobilinogen NEGATIVE Urine Leukocyte Esterase NEGATIVE Urine Microscopic RBC 10 H Urine Microscopic WBC 2 Urine Mucus FEW A Urine Hemoglobin 1+ H Urine Random Creatinine 182.60 Urine Random Sodium < 13 L Urine Glucose NEGATIVE Urine Total Protein 183.0 H White Blood Count 17.9 #H Red Blood Count 4.62 L Hemoglobin 13.3 L Hematocrit 39.6 L Mean Corpuscular Volume 85.7 Mean Corpuscular Hemoglobin 28.8 L Mean Corpuscular Hemoglobin Concent 33.6 Red Cell Distribution Width 14.2 Platelet Count 111 #L Mean Platelet Volume 12.0 H Immature Granulocytes % 0.500 H Neutrophils % 81.8 H Lymphocytes % 6.3 L Monocytes % 11.2 H Eosinophils % 0.1 Basophils % 0.1 Nucleated Red Blood Cells % 0.0 Immature Granulocytes # 0.090 H Neutrophils # 14.7 H Lymphocytes # 1.1 Monocytes # 2.0 H Eosinophils # 0.0 Basophils # 0.0 Nucleated Red Blood Cells # 0.0 Sodium Level 134 L Potassium Level 3.6 Chloride Level 100 Carbon Dioxide Level 26 Anion Gap 8 Blood Urea Nitrogen 41 #H Creatinine 1.87 H Est Glomerular Filtrat Rate mL/min 38 L Glucose Level 156 Calcium Level 8.9 Medications Medications Current Medications IV Flush (NS 3 ml) 3 ml PER PROTOCOL IV ; Start 07/20/18 at 21:30 Ondansetron HCl (Zofran Inj) 4 mg Q6H PRN IV NAUSEA/VOMITING Last administered on 07/21/18 09:55; Admin Dose 4 MG; Start 07/20/18 at 21:30 Acetaminophen (Tylenol Tab) 650 mg Q6H PRN PO .PAIN 1-3 OR TEMP; Start 07/20/18 at 21:30 Acetaminophen/ Hydrocodone Bitart ([place] (5/325)) 1 tab Q6H PRN PO .MOD PAIN 4- 6 Last administered on 07/21/18 23:38; Admin Dose 1 TAB; Start 07/20/18 at 21:30 Morphine Sulfate (morphine) 2 mg Q4H PRN IV .SEVERE PAIN 7-10 Last administered on 07/22/18 04:54; Admin Dose 2 MG; Start 07/20/18 at 21:30 Docusate Sodium (Colace) 100 mg Q12H PRN PO .CONSTIPATION Last administered on 07/22/18 09:47; Admin Dose 100 MG; Start 07/20/18 at 21:30 Magnesium Hydroxide (Milk Of Mag) 30 ml DAILY PRN PO .CONSTIPATION; Start at 21:30 Heparin Sodium (Porcine) (Heparin (5000 Units/1ml)) 5,000 unit Q12 SC Last administered on 07/22/18 09:48; Admin Dose 5,000 UNIT; Start 07/21/18 at 09:00 Lorazepam (Ativan) 0.5 mg Q6H PRN IV ANXIETY Last administered on 07/20/18 22:54; Admin Dose 0.5 MG; Start 07/20/18 at 21:30 Albuterol/ Ipratropium (Duoneb) 3 ml Q4H RESP THERAPY PRN HHN SHORTNESS OF BREATH; Start 07/20/18 at 21:30 Nitroglycerin (Nitroglycerin (Sl Tab) 0.4 Mg) 1 tab Q5M PRN SL ANGINA; Start 07/20/18 at 21:30 Levofloxacin/ Dextrose 150 ml @ 100 mls/hr Q24H IVPB Last administered on 07/21/18at 20:42; Admin Dose 100 MLS/HR; Start 07/20/18 at 21:30 Hydralazine HCl (Apresoline) 10 mg Q4H PRN IV ELEVATED BLOOD PRESSURE Last administered on 07/21/18 21:46; Admin Dose 10 MG; Start 07/21/18 at 04:30 Amlodipine Besylate (Norvasc) 10 mg DAILY PO Last administered on 07/22/18 09:47; Admin Dose 10 MG; Start 07/21/18 at 04:30 Hydralazine HCl (Apresoline) 50 mg TID PO Last administered on 07/22/18 09:47; Admin Dose 50 MG; Start 07/22/18 at 09:00 Labetalol HCl (Normodyne) 200 mg BID PO ; Start 07/22/18 at 10:00 PHILL MCGOVERN Jul 22, 2018 12:04
[2018-07-22] MEDS: LABETALOL 200 MG TAB PO SCH ×2 (12:19→20:36)
--- NOTE | 2018-07-22 13:11 | PN ---
DATE: 07/22/2018 SUBJECTIVE: This morning I spoke through a liquor merchant with the patient regarding his history of kidney disease and hypertension. The patient is a poor historian. He stated that he does have hypertension but is not taking medications because he could not get to the doctor. No othe r events noted. The patient is describing bilateral flank pain. Denies any hemoptysis, hematemesis, hematochezia or hematuria. OBJECTIVE: VITAL SIGNS: Blood pressure is 131/86, respiration 19, pulse 71, temperature 97.9. HEENT: Head is normocephalic. NECK: Supple. HEART: Regular rate. LUNGS: Show diminished breath sounds at the base. ABDOMEN: Soft, nontender to palpation. No rebound or guarding. EXTREMITIES: Negative for clubbing, cyanosis, no edema. DERMATOLOGIC: No rashes. MUSCULOSKELETAL: No joint effusions. NEUROLOGIC: No change in exam. MEDICATIONS: Reviewed. LABORATORY DATA: Has been reviewed. Patient's renal ultrasound was reviewed, shows increased echoge nicity bilaterally suggestive of chronic renal disease and nonobstructive calculus. ASSESSMENT AND PLAN: 1. Nonoliguric acute kidney injury on top of chronic kidney disease with unknown baseline creatinine . Etiology of current acute kidney injury is likely secondary to hemodynamics, questionable tubular injury. The patient's urinalysis was reviewed, showed no active sediment. Protein creatinine ratio approximately 1 gram per gram of creatinine. The patient also had a phenol less than 1%. Renal ultr asound did show evidence of increased echogenicity consistent with no evidence of obstruction. Recom mendation regarding patient's renal function has improved in the last 24 hours. Recommendation at th is point is to continue current blood pressure regimen. Will adjust BP regimen as needed. Monitor c losely for significant hemodynamic fluctuations. Would defer any DANA inhibitor, ARB at this time unt il renal function stabilizes. Will continue to monitor closely. 2. Hypertensive urgency. Etiology is likely due to medical noncompliance. However, secondary chino p may be warranted. The patient's renal ultrasound shows kidneys with appropriate size, less likely to indicate renal artery stenosis. The patient's blood pressure has improved this morning. Would th erefore continue current blood pressure regimen. If blood pressures are unable to be adequately cont rolled, would consider further evaluation by checking a renin aldosterone level. Renal arterial ultr asound. Again, will defer DANA inhibitor or ARB at this time until renal function stabilizes. 3. Mineral bone disorder. Monitor calcium and phosphorus levels. 4. Leukocytosis, etiology is likely reactive. Continue to monitor. 5. Questionable insecticide poisoning. 6. Acute encephalopathy. Etiology may be secondary to underlying hypertension, questionable psychos is. Continue to monitor. Dictated By: STEFANIA FRANKLIN DO NR/NTS Conf#: [id number] DID#: [id number] CC: EMIL DANIELS;*EndCC*
--- NOTE | 2018-07-22 15:05 | PN ---
Date/Time of Note Date/Time of Note DATE: 07/22/18 TIME: 15:02 Assessment/Plan VTE Prophylaxis Risk score (from Nsg)>0 risk: 1 Pharmacological prophylaxis: heparin Lines/Catheters IV Catheter Type (from Nrsg): Saline Lock Urinary Cath still in place: No Assessment/Plan Hospital Course Assessment and plan: 52-year-old man past medical history of hypertension who presents with abdominal pain, with signs of renal insufficiency, leukocytosis, and hypertensive emergency. 1. Hypertensive emergency: Again patient apparently noncompliant with his home blood pressure medicines, systolic blood pressure in the 200 range on admission Continue labetalol hydralazine and Norvasc, BP currently improved Hydralazine as needed Echo shows preserved EF 2. Leukocytosis-Chest x-ray, CT abdomen and UA are negative for signs of infection Likely reactive DC Levaquin 3. Likely CKD from hypertension Nephrology consultation appreciated Ultrasound of kidneys suggests chronic renal disease 4. 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 Prophylaxis: Heparin DC planning: Anticipate DC home in 1 to 2 days once BP stable Result Diagram: 07/22/1851107/22/18 0512 Results 24hrs Laboratory Tests Test 07/22/18 05:12 White Blood Count 17.9 #H Red Blood Count 4.62 L Hemoglobin 13.3 L Hematocrit 39.6 L Mean Corpuscular Volume 85.7 Mean Corpuscular Hemoglobin 28.8 L Mean Corpuscular Hemoglobin Concent 33.6 Red Cell Distribution Width 14.2 Platelet Count 111 #L Mean Platelet Volume 12.0 H Immature Granulocytes % 0.500 H Neutrophils % 81.8 H Lymphocytes % 6.3 L Monocytes % 11.2 H Eosinophils % 0.1 Basophils % 0.1 Nucleated Red Blood Cells % 0.0 Immature Granulocytes # 0.090 H Neutrophils # 14.7 H Lymphocytes # 1.1 Monocytes # 2.0 H Eosinophils # 0.0 Basophils # 0.0 Nucleated Red Blood Cells # 0.0 Sodium Level 134 L Potassium Level 3.6 Chloride Level 100 Carbon Dioxide Level 26 Anion Gap 8 Blood Urea Nitrogen 41 #H Creatinine 1.87 H Est Glomerular Filtrat Rate mL/min 38 L Glucose Level 156 Calcium Level 8.9 Subjective 24 Hr Interval Summary Constitutional: no complaints Exam/Review of Systems Exam Vitals Vital Signs Date Temp Pulse Resp B/P (MAP) Pulse Ox O2 O2 Flow FiO2 Time Delivery Rate 07/22/18 Room Air 12:08 07/22/18 98.4 108 18 122/74 94 11:28 (90) 07/21/18 2.0 19:45 Intake and Output 07/21/18 07/21/18 07/22/18 1515:00 23:00 07:00 IntakeIntake Total 600 ml 400 ml OutputOutput Total 200 ml 700 ml BalanceBalance 600 ml -200 ml -300 ml Constitutional: alert, oriented Respiratory: clear to auscultation Cardiovascular: regular rate and rhythm Gastrointestinal: soft; No distended Musculoskeletal: nl extremities to inspection Results Results 24hrs Laboratory Tests Test 07/22/18 05:12 White Blood Count 17.9 #H Red Blood Count 4.62 L Hemoglobin 13.3 L Hematocrit 39.6 L Mean Corpuscular Volume 85.7 Mean Corpuscular Hemoglobin 28.8 L Mean Corpuscular Hemoglobin Concent 33.6 Red Cell Distribution Width 14.2 Platelet Count 111 #L Mean Platelet Volume 12.0 H Immature Granulocytes % 0.500 H Neutrophils % 81.8 H Lymphocytes % 6.3 L Monocytes % 11.2 H Eosinophils % 0.1 Basophils % 0.1 Nucleated Red Blood Cells % 0.0 Immature Granulocytes # 0.090 H Neutrophils # 14.7 H Lymphocytes # 1.1 Monocytes # 2.0 H Eosinophils # 0.0 Basophils # 0.0 Nucleated Red Blood Cells # 0.0 Sodium Level 134 L Potassium Level 3.6 Chloride Level 100 Carbon Dioxide Level 26 Anion Gap 8 Blood Urea Nitrogen 41 #H Creatinine 1.87 H Est Glomerular Filtrat Rate mL/min 38 L Glucose Level 156 Calcium Level 8.9 Medications Medication Current Medications IV Flush (NS 3 ml) 3 ml PER PROTOCOL IV ; Start 07/20/18 at 21:30 Ondansetron HCl (Zofran Inj) 4 mg Q6H PRN IV NAUSEA/VOMITING Last administered on 07/21/18at 09:55; Admin Dose 4 MG; Start 07/20/18 at 21:30 Acetaminophen (Tylenol Tab) 650 mg Q6H PRN PO .PAIN 1-3 OR TEMP; Start 07/20/18 at 21:30 Acetaminophen/ Hydrocodone Bitart ([place] (5/325)) 1 tab Q6H PRN PO .MOD PAIN 4- 6 Last administered on 07/21/18 23:38; Admin Dose 1 TAB; Start 07/20/18 at 21:30 Morphine Sulfate (morphine) 2 mg Q4H PRN IV .SEVERE PAIN 7-10 Last administered on 07/22/18 04:54; Admin Dose 2 MG; Start 07/20/18 at 21:30 Docusate Sodium (Colace) 100 mg Q12H PRN PO .CONSTIPATION Last administered on 07/22/18 09:47; Admin Dose 100 MG; Start 07/20/18 at 21:30 Magnesium Hydroxide (Milk Of Mag) 30 ml DAILY PRN PO .CONSTIPATION; Start 07/20/18 at 21:30 Heparin Sodium (Porcine) (Heparin (5000 Units/1ml)) 5,000 unit Q12 SC Last administered on 07/22/18 09:48; Admin Dose 5,000 UNIT; Start 07/21/18 at 09:00 Lorazepam (Ativan) 0.5 mg Q6H PRN IV ANXIETY Last administered on 07/20/18 22:54; Admin Dose 0.5 MG; Start 07/20/18 at 21:30 Albuterol/ Ipratropium (Duoneb) 3 ml Q4H RESP THERAPY PRN HHN SHORTNESS OF BREATH; Start 07/20/18 at 21:30 Nitroglycerin (Nitroglycerin (Sl Tab) 0.4 Mg) 1 tab Q5M PRN SL ANGINA; Start 07/20/18 at 21:30 Levofloxacin/ Dextrose 150 ml @ 100 mls/hr Q24H IVPB Last administered on 07/21/18 20:42; Admin Dose 100 MLS/HR; Start 07/20/18 at 21:30 Hydralazine HCl (Apresoline) 10 mg Q4H PRN IV ELEVATED BLOOD PRESSURE Last administered on 07/21/18 21:46; Admin Dose 10 MG; Start 07/21/18 at 04:30 Amlodipine Besylate (Norvasc) 10 mg DAILY PO Last administered on 07/22/18 09:47; Admin Dose 10 MG; Start 07/21/18 at 04:30 Hydralazine HCl (Apresoline) 50 mg TID PO Last administered on 07/22/18 12:19; Admin Dose 50 MG; Start 07/22/18 at 09:00 Labetalol HCl (Normodyne) 200 mg BID PO Last administered on 07/22/18at 12:19; Admin Dose 200 MG; Start 07/22/18 at 10:00 NITO GATES Jul 22, 2018 15:05
[2018-07-22] MEDS: HYDROCODONE/APAP (5/325) TAB PO PRN (20:36)
[2018-07-23] VITALS (11 sets, daily range): BP systolic 109–166; BP diastolic 71–116; PULSE 77–114; RESP 18–20
[2018-07-23] MEDS: morphine 2 MG INJ IV PRN (04:56)
--- NOTE | 2018-07-23 09:30 | PN ---
DATE: 07/23/2018 SUBJECTIVE: The patient is stable. No events overnight. The patient's blood pressures have improve d. OBJECTIVE: VITAL SIGNS: Blood pressure is 147/92, respiration 19, pulse 99, temperature 98.2. HEENT: Head is normocephalic. NECK: Supple. HEART: Regular rate. LUNGS: Show diminished breath sounds at the base. ABDOMEN: Soft, nontender to palpation without rebound or guarding. EXTREMITIES: Negative for clubbing, cyanosis, no edema. DERMATOLOGIC: No rashes. MUSCULOSKELETAL: No joint effusion. NEUROLOGIC: No change in exam. MEDICATIONS: The patient's medications have been reviewed. LABORATORY DATA: From 07/23/2018 has been reviewed. ASSESSMENT AND PLAN: 1. Nonoliguric acute kidney injury on top of chronic kidney disease with unknown baseline creatinine . Etiology of acute kidney injury is secondary to hemodynamics, questionable tubular injury. Wolf escalante's renal function has slowly been improving. At this point, continue current treatment plans, suppo rtive care, renally dose all medication. 2. Chronic kidney disease, etiology is likely secondary to hypertensive nephrosclerosis. The wolf escalante is currently in acute kidney injury as stated above. Continue current medical management. Continu e disease factor modification. 3. Hypertensive urgency. Etiology is likely due to medical noncompliance. The patient's blood pres sures have been improving. Continue current blood pressure regimen. Will adjust medications as need ed. Monitor closely to avoid hypotensive episodes. Would defer any DANA inhibitor or ARB at this audie e in the setting of acute kidney injury. 4. Mineral bone disorder, monitor calcium and phosphorus levels. 5. Leukocytosis, systemic inflammatory response syndrome. Continue to monitor. 6. Questionable insecticide poisoning. 7. Encephalopathy, improving. 8. History of psychosis. Dictated By: STEFANIA FRANKLIN DO NR/NTS Conf#: [id number] DID#: [id number] CC: MELISSA CHOPRA MD; NITO GATES MD; EMIL DANIELS;*EndCC*
[2018-07-23] MEDS: AMLODIPINE 10 MG TAB PO SCH (09:54)
[2018-07-23] MEDS: LABETALOL 200 MG TAB PO SCH ×2 (09:54→20:18)
[2018-07-23] MEDS: HEPARIN 5,000 UNIT/1 ML VIAL SC SCH ×2 (10:03→20:25)
[2018-07-23] MEDS: HYDROCODONE/APAP (5/325) TAB PO PRN ×2 (10:27→20:19)
[2018-07-23] MEDS: OLANZAPINE (ODT) 5 MG TAB ODT SCH (17:14)
--- NOTE | 2018-07-23 17:55 | PN ---
Date/Time of Note Date/Time of Note DATE: 07/23/18 TIME: 17:54 Assessment/Plan VTE Prophylaxis Risk score (from Nsg)>0 risk: 1 Pharmacological prophylaxis: heparin Lines/Catheters IV Catheter Type (from Nrsg): Saline Lock Urinary Cath still in place: No Assessment/Plan Hospital Course Assessment and plan: 52-year-old man past medical history of hypertension who presents with abdominal pain, with signs of renal insufficiency, leukocytosis, and hypertensive emergency. 1. Hypertensive emergency: Again patient apparently noncompliant with his home blood pressure medicines, systolic blood pressure in the 200 range on admission Continue labetalol hydralazine and Norvasc, BP currently improved Hydralazine as needed Echo shows preserved EF 2. Leukocytosis-Chest x-ray, CT abdomen and UA are negative for signs of infection Likely reactive DC Levaquin 3. Likely CKD from hypertension Nephrology consultation appreciated Ultrasound of kidneys suggests chronic renal disease 4. 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 Constipation Colace Prophylaxis: Heparin DC planning: Anticipate DC home tomorrow Result Diagram: 07/23/18 0541 07/23/18 0541 Results 24hrs Laboratory Tests Test 07/23/18 05:41 White Blood Count 16.4 H Red Blood Count 4.51 L Hemoglobin 12.9 L Hematocrit 38.7 L Mean Corpuscular Volume 85.8 Mean Corpuscular Hemoglobin 28.6 L Mean Corpuscular Hemoglobin Concent 33.3 Red Cell Distribution Width 14.3 Platelet Count 118 L Mean Platelet Volume 12.6 H Immature Granulocytes % 0.500 H Neutrophils % 80.6 H Lymphocytes % 7.8 L Monocytes % 10.9 Eosinophils % 0.1 Basophils % 0.1 Nucleated Red Blood Cells % 0.0 Immature Granulocytes # 0.080 H Neutrophils # 13.2 H Lymphocytes # 1.3 Monocytes # 1.8 H Eosinophils # 0.0 Basophils # 0.0 Nucleated Red Blood Cells # 0.0 Sodium Level 134 L Potassium Level 3.8 Chloride Level 101 Carbon Dioxide Level 26 Anion Gap 7 Blood Urea Nitrogen 43 H Creatinine 1.75 H Est Glomerular Filtrat Rate mL/min 41 L Glucose Level 136 Calcium Level 8.9 Subjective 24 Hr Interval Summary Gastrointestinal: constipation Exam/Review of Systems Exam Vitals Vital Signs Date Temp Pulse Resp B/P (MAP) Pulse Ox O2 O2 Flow FiO2 Time Delivery Rate 07/23/18 105 16:01 07/23/18 98.0 18 149/80 96 15:12 (103) 07/22/18 Room Air 20:00 07/21/18 2.0 19:45 Intake and Output 07/22/18 07/22/18 07/23/18 1515:00 23:00 07:00 IntakeIntake Total 825 ml 100 ml 400 ml OutputOutput Total 600 ml 300 ml 650 ml BalanceBalance 225 ml -200 ml -250 ml Constitutional: alert Respiratory: clear to auscultation Cardiovascular: regular rate and rhythm Gastrointestinal: soft; No distended Musculoskeletal: nl extremities to inspection Results Results 24hrs Laboratory Tests Test 07/23/18 05:41 White Blood Count 16.4 H Red Blood Count 4.51 L Hemoglobin 12.9 L Hematocrit 38.7 L Mean Corpuscular Volume 85.8 Mean Corpuscular Hemoglobin 28.6 L Mean Corpuscular Hemoglobin Concent 33.3 Red Cell Distribution Width 14.3 Platelet Count 118 L Mean Platelet Volume 12.6 H Immature Granulocytes % 0.500 H Neutrophils % 80.6 H Lymphocytes % 7.8 L Monocytes % 10.9 Eosinophils % 0.1 Basophils % 0.1 Nucleated Red Blood Cells % 0.0 Immature Granulocytes # 0.080 H Neutrophils # 13.2 H Lymphocytes # 1.3 Monocytes # 1.8 H Eosinophils # 0.0 Basophils # 0.0 Nucleated Red Blood Cells # 0.0 Sodium Level 134 L Potassium Level 3.8 Chloride Level 101 Carbon Dioxide Level 26 Anion Gap 7 Blood Urea Nitrogen 43 H Creatinine 1.75 H Est Glomerular Filtrat Rate mL/min 41 L Glucose Level 136 Calcium Level 8.9 Medications Medication Current Medications IV Flush (NS 3 ml) 3 ml PER PROTOCOL IV ; Start 07/20/18 at 21:30 Ondansetron HCl (Zofran Inj) 4 mg Q6H PRN IV NAUSEA/VOMITING Last administered on 07/21/18at 09:55; Admin Dose 4 MG; Start 07/20/18 at 21:30 Acetaminophen (Tylenol Tab) 650 mg Q6H PRN PO .PAIN 1-3 OR TEMP; Start 07/20/18 at 21:30 Acetaminophen/ Hydrocodone Bitart ([place] (5/325)) 1 tab Q6H PRN PO .MOD PAIN 4- 6 Last administered on 07/23/18 10:27; Admin Dose 1 TAB; Start 07/20/18 at 21:30 Morphine Sulfate (morphine) 2 mg Q4H PRN IV .SEVERE PAIN 7-10 Last administered on 07/23/18 04:56; Admin Dose 2 MG; Start 07/20/18 at 21:30 Docusate Sodium (Colace) 100 mg Q12H PRN PO .CONSTIPATION Last administered on 07/22/18 09:47; Admin Dose 100 MG; Start 07/20/18 at 21:30 Magnesium Hydroxide (Milk Of Mag) 30 ml DAILY PRN PO .CONSTIPATION; Start 07/20/18 at 21:30 Heparin Sodium (Porcine) (Heparin (5000 Units/1ml)) 5,000 unit Q12 SC Last administered on 07/23/18 10:03; Admin Dose 5,000 UNIT; Start 07/21/18 at 09:00 Lorazepam (Ativan) 0.5 mg Q6H PRN IV ANXIETY Last administered on 07/20/18 22:54; Admin Dose 0.5 MG; Start 07/20/18 at 21:30 Albuterol/ Ipratropium (Duoneb) 3 ml Q4H RESP THERAPY PRN HHN SHORTNESS OF BREATH; Start 07/20/18 at 21:30 Nitroglycerin (Nitroglycerin (Sl Tab) 0.4 Mg) 1 tab Q5M PRN SL ANGINA; Start 07/20/18 at 21:30 Hydralazine HCl (Apresoline) 10 mg Q4H PRN IV ELEVATED BLOOD PRESSURE Last administered on 07/21/18 21:46; Admin Dose 10 MG; Start 07/21/18 at 04:30 Amlodipine Besylate (Norvasc) 10 mg DAILY PO Last administered on 07/23/18 09:54; Admin Dose 10 MG; Start 07/21/18 at 04:30 Hydralazine HCl (Apresoline) 50 mg TID PO Last administered on 07/23/18 17:15; Admin Dose 50 MG; Start 07/22/18 at 09:00 Labetalol HCl (Normodyne) 200 mg BID PO Last administered on 07/23/18 09:54; Admin Dose 200 MG; Start 07/22/18 at 10:00 Olanzapine (Zyprexa Zydis) 5 mg DAILY ODT Last administered on 07/23/18at 17:14; Admin Dose 5 MG; Start 07/23/18 at 15:30 Docusate Sodium (Colace) 100 mg BID PO ; Start 07/23/18 at 21:00 NITO GATES Jul 23, 2018 17:55
[2018-07-23] MEDS: DOCUSATE SODIUM 100 MG CAP PO SCH (20:19)
[2018-07-24] VITALS (18 sets, daily range): BP systolic 109–180; BP diastolic 60–107; PULSE 70–116; RESP 18–20
[2018-07-24] MEDS: hydrALAzine 20 MG INJ IV PRN ×3 (00:54→11:15)
[2018-07-24] MEDS: HYDROCODONE/APAP (5/325) TAB PO PRN ×2 (05:04→21:06)
[2018-07-24] MEDS: HEPARIN 5,000 UNIT/1 ML VIAL SC SCH ×3 (09:00→21:12)
[2018-07-24] MEDS: DOCUSATE SODIUM 100 MG CAP PO SCH ×2 (09:03→21:05)
[2018-07-24] MEDS: AMLODIPINE 10 MG TAB PO SCH (09:04)
[2018-07-24] MEDS: OLANZAPINE (ODT) 5 MG TAB ODT SCH (09:04)
--- NOTE | 2018-07-24 09:09 | PN ---
DATE: 07/24/2018 SUBJECTIVE: The patient is stable overnight. The patient was noted to be hypertensive. No other ev ents noted. No hemoptysis, hematemesis or hematochezia. OBJECTIVE: VITAL SIGNS: Blood pressure is 165/92, respiration 18, pulse 111, temperature 98.6. HEENT: Head is normocephalic. NECK: Supple. HEART: Regular rate. LUNGS: Show diminished breath sounds at the base. ABDOMEN: Soft, nontender to palpation without rebound or guarding. EXTREMITIES: Negative for clubbing, cyanosis, no edema. DERMATOLOGIC: No rashes. MUSCULOSKELETAL: No joint effusions. NEUROLOGIC: No change in exam. MEDICATIONS: The patient's medications have been reviewed. LABORATORY DATA: Has been reviewed. IMAGING STUDIES: Have been reviewed. ASSESSMENT AND PLAN: 1. Nonoliguric acute kidney injury on top of chronic kidney disease with unknown baseline creatinine . Etiology of acute kidney injury is secondary to hemodynamics, questionable tubular injury. The qasim pierre's renal function appears to be stabilizing around a creatinine of 1.7 mg/dL. Will continue to monitor, continue supportive care, renally dose all meds, avoid nephrotoxins. 2. Chronic kidney disease, etiology is likely due to hypertensive nephrosclerosis. The patient curr ently in acute kidney injury as stated above. Continue current treatment plan. Continue disease fac tor modification. 3. Hypertension. Blood pressure is slowly improving but remains elevated. Will increase labetalol to 200 mg q.8h. Continue hydralazine and Norvasc. Up titrate medications as needed. Would defer an y DANA inhibitor or ARB at this time. 4. Mineral bone disorder. Monitor calcium and phosphorus levels. 5. Leukocytosis, SIRS, continue to monitor. 6. Encephalopathy, improving. 7. History of psychosis. Dictated By: STEFANIA FRANKLIN DO NR/NTS Conf#: [id number] DID#: [id number] CC: EMIL DANIELS; NITO GATES MD; MELISSA CHOPRA MD;*EndCC*
--- NOTE | 2018-07-24 12:24 | PN ---
Date/Time of Note Date/Time of Note DATE: 07/24/18 TIME: 12:20 Assessment/Plan VTE Prophylaxis Risk score (from Nsg)>0 risk: 1 Pharmacological prophylaxis: heparin Lines/Catheters IV Catheter Type (from Nrsg): Saline Lock Urinary Cath still in place: No Assessment/Plan Hospital Course Assessment and plan: 52-year-old man past medical history of hypertension who presents with abdominal pain, with signs of renal insufficiency, leukocytosis, and hypertensive emergency. 1. Hypertensive emergency: Again patient apparently noncompliant with his home blood pressure medicines, systolic blood pressure in the 200 range on admission Continue labetalol hydralazine and Norvasc, BP currently improved but still e levated Hydralazine as needed Echo shows preserved EF 2. Leukocytosis-Chest x-ray, CT abdomen and UA are negative for signs of infection Likely reactive DC'd Levaquin 3. Likely CKD from hypertension Nephrology consultation appreciated Ultrasound of kidneys suggests chronic renal disease 4. 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 Constipation Colace Prophylaxis: Heparin DC planning: Blood pressure still elevated, continue to titrate medications Result Diagram: 07/24/18 0444 07/24/18 0444 Results 24hrs Laboratory Tests Test 07/24/18 04:44 White Blood Count 14.5 H Red Blood Count 4.51 L Hemoglobin 13.1 L Hematocrit 38.6 L Mean Corpuscular Volume 85.6 Mean Corpuscular Hemoglobin 29.0 Mean Corpuscular Hemoglobin Concent 33.9 Red Cell Distribution Width 14.3 Platelet Count 150 # Mean Platelet Volume 11.9 H Immature Granulocytes % 0.500 H Neutrophils % 77.9 H Lymphocytes % 9.9 L Monocytes % 11.2 H Eosinophils % 0.2 Basophils % 0.3 Nucleated Red Blood Cells % 0.0 Immature Granulocytes # 0.070 H Neutrophils # 11.3 H Lymphocytes # 1.4 Monocytes # 1.6 H Eosinophils # 0.0 Basophils # 0.0 Nucleated Red Blood Cells # 0.0 Sodium Level 136 Potassium Level 3.5 Chloride Level 101 Carbon Dioxide Level 26 Anion Gap 9 Blood Urea Nitrogen 37 H Creatinine 1.76 H Est Glomerular Filtrat Rate mL/min 41 L Glucose Level 146 Calcium Level 9.3 Subjective 24 Hr Interval Summary Constitutional: no complaints Exam/Review of Systems Exam Vitals Vital Signs Date Temp Pulse Resp B/P (MAP) Pulse Ox O2 O2 Flow FiO2 Time Delivery Rate 07/24/18 109 18 168/107 11:22 (127) 07/24/18 98.1 92 11:18 07/24/18 Room Air 04:00 07/21/18 2.0 19:45 Intake and Output 07/23/18 07/23/18 07/24/18 1515:00 23:00 07:00 IntakeIntake Total 625 ml 500 ml OutputOutput Total 500 ml BalanceBalance 125 ml 500 ml Constitutional: alert, oriented Respiratory: clear to auscultation Cardiovascular: regular rate and rhythm Gastrointestinal: soft Musculoskeletal: nl extremities to inspection Results Results 24hrs Laboratory Tests Test 07/24/18 04:44 White Blood Count 14.5 H Red Blood Count 4.51 L Hemoglobin 13.1 L Hematocrit 38.6 L Mean Corpuscular Volume 85.6 Mean Corpuscular Hemoglobin 29.0 Mean Corpuscular Hemoglobin Concent 33.9 Red Cell Distribution Width 14.3 Platelet Count 150 # Mean Platelet Volume 11.9 H Immature Granulocytes % 0.500 H Neutrophils % 77.9 H Lymphocytes % 9.9 L Monocytes % 11.2 H Eosinophils % 0.2 Basophils % 0.3 Nucleated Red Blood Cells % 0.0 Immature Granulocytes # 0.070 H Neutrophils # 11.3 H Lymphocytes # 1.4 Monocytes # 1.6 H Eosinophils # 0.0 Basophils # 0.0 Nucleated Red Blood Cells # 0.0 Sodium Level 136 Potassium Level 3.5 Chloride Level 101 Carbon Dioxide Level 26 Anion Gap 9 Blood Urea Nitrogen 37 H Creatinine 1.76 H Est Glomerular Filtrat Rate mL/min 41 L Glucose Level 146 Calcium Level 9.3 Medications Medication Current Medications IV Flush (NS 3 ml) 3 ml PER PROTOCOL IV ; Start 07/20/18 at 21:30 Ondansetron HCl (Zofran Inj) 4 mg Q6H PRN IV NAUSEA/VOMITING Last administered on 07/21/18at 09:55; Admin Dose 4 MG; Start 07/20/18 at 21:30 Acetaminophen (Tylenol Tab) 650 mg Q6H PRN PO .PAIN 1-3 OR TEMP; Start 07/20/18 at 21:30 Acetaminophen/ Hydrocodone Bitart ([place] (5/325)) 1 tab Q6H PRN PO .MOD PAIN 4- 6 Last administered on 07/24/18 05:04; Admin Dose 1 TAB; Start 07/20/18 at 21:30 Morphine Sulfate (morphine) 2 mg Q4H PRN IV .SEVERE PAIN 7-10 Last administered on 07/23/18 04:56; Admin Dose 2 MG; Start 07/20/18 at 21:30 Docusate Sodium (Colace) 100 mg Q12H PRN PO .CONSTIPATION Last administered on 07/22/18 09:47; Admin Dose 100 MG; Start 07/20/18 at 21:30 Magnesium Hydroxide (Milk Of Mag) 30 ml DAILY PRN PO .CONSTIPATION; Start 07/20/18 at 21:30 Heparin Sodium (Porcine) (Heparin (5000 Units/1ml)) 5,000 unit Q12 SC Last administered on 07/24/18 11:21; Admin Dose 5,000 UNIT; Start 07/21/18 at 09:00 Lorazepam (Ativan) 0.5 mg Q6H PRN IV ANXIETY Last administered on 07/20/18 22:54; Admin Dose 0.5 MG; Start 07/20/18 at 21:30 Albuterol/ Ipratropium (Duoneb) 3 ml Q4H RESP THERAPY PRN HHN SHORTNESS OF BREATH; Start 07/20/18 at 21:30 Nitroglycerin (Nitroglycerin (Sl Tab) 0.4 Mg) 1 tab Q5M PRN SL ANGINA; Start 07/20/18 at 21:30 Hydralazine HCl (Apresoline) 10 mg Q4H PRN IV ELEVATED BLOOD PRESSURE Last administered on 07/24/18 11:15; Admin Dose 10 MG; Start 07/21/18 at 04:30 Amlodipine Besylate (Norvasc) 10 mg DAILY PO Last administered on 07/24/18 09:04; Admin Dose 10 MG; Start 07/21/18 at 04:30 Hydralazine HCl (Apresoline) 50 mg TID PO Last administered on 07/24/18 09:04; Admin Dose 50 MG; Start 07/22/18 at 09:00 Olanzapine (Zyprexa Zydis) 5 mg DAILY ODT Last administered on 07/24/18 09:04; Admin Dose 5 MG; Start 07/23/18 at 15:30 Docusate Sodium (Colace) 100 mg BID PO Last administered on 07/24/18at 09:03; Admin Dose 100 MG; Start 07/23/18 at 21:00 Labetalol HCl (Normodyne) 400 mg Q8 PO ; Start 07/24/18 at 14:00 NITO GATES Jul 24, 2018 12:24
[2018-07-24] MEDS: LABETALOL 200 MG TAB PO SCH ×2 (14:52→21:08)
[2018-07-25] VITALS (10 sets, daily range): BP systolic 112–149; BP diastolic 62–77; PULSE 66–85; RESP 16–20
[2018-07-25] MEDS: HYDROCODONE/APAP (5/325) TAB PO PRN ×2 (05:41→19:44)
[2018-07-25] MEDS: LABETALOL 200 MG TAB PO SCH ×3 (05:41→21:36)
[2018-07-25] MEDS: DOCUSATE SODIUM 100 MG CAP PO SCH ×2 (08:38→20:27)
[2018-07-25] MEDS: OLANZAPINE (ODT) 5 MG TAB ODT SCH (08:38)
[2018-07-25] MEDS: AMLODIPINE 10 MG TAB PO SCH (08:38)
[2018-07-25] MEDS: HEPARIN 5,000 UNIT/1 ML VIAL SC SCH ×2 (08:42→20:33)
--- NOTE | 2018-07-25 09:10 | PN ---
DATE: 07/25/2018 SUBJECTIVE: The patient is stable. Blood pressure has improved. No other events noted. OBJECTIVE: VITAL SIGNS: Blood pressure is 112/62, respirations 16, pulse 66, temperature 98.6. HEENT: Head is normocephalic. NECK: Supple. HEART: Regular rate. LUNGS: Show diminished breath sounds at the base. ABDOMEN: Soft, nontender to palpation without rebound or guarding. EXTREMITIES: Negative for clubbing, cyanosis, no edema. DERMATOLOGIC: No rashes. MUSCULOSKELETAL: No joint effusion. NEUROLOGIC: No change in exam. MEDICATIONS: The patient's medications have been reviewed. LABORATORY DATA: Has been reviewed. ASSESSMENT AND PLAN: 1. Oliguric acute kidney injury on top of chronic kidney disease with unknown baseline creatinine. Etiology of acute kidney injury is secondary to hemodynamics, possible tubular injury. The patient's renal function is slowly improving. At this point, continue current treatment plan, supportive care , renally dose all medication. 2. Chronic kidney disease likely secondary to hypertensive nephrosclerosis. The patient is currentl y in acute kidney injury as stated above. Continue current treatment plan. Continue disease factor modification. 3. Hypertension. Blood pressure is improving. We will continue current blood pressure regimen, lab etalol, hydralazine and Norvasc. Monitor blood pressure closely. If the patient should develop hypo tensive episodes, will deescalate blood pressure regimen. Would defer any DANA inhibitor or ARB at th is time. 4. Mineral bone disorder, monitor calcium and phosphorus levels. 5. Leukocytosis, systemic inflammatory response syndrome. Continue to monitor. 6. Encephalopathy, improving. 7. History of psychosis. Dictated By: STEFANIA CARPENTER/THIEN Conf#: [id number] DID#: [id number]
--- NOTE | 2018-07-25 10:42 | CONS ---
Assessment/Plan Assessment/Plan Hospital Course (Demo Recall) Hypertensive crisis: BP 209/117 on admission, now improved. Moderate LVH by echo but preserved EF. Now controlled Acute on chronic renal failure: stable ?insecticide poisoning Psychosis -continue amlodipine 10mg -hydralazine 50mg TID -labetalol 400mg BID -ok for d.c from cardiac perspective Consultation Date/Type/Reason Admit Date/Time Jul 20, 2018 at 20:18 Initial Consult Date 07/21/18 Type of Consult Cardiology Requesting Provider: EMIL DANIELS Date/Time of Note DATE: 07/25/18 TIME: 10:41 24 HR Interval Summary Free Text/Dictation BP better controlled. Cr stable. No complaints except for constipation Exam/Review of Systems Vital Signs Vitals Vital Signs Date Temp Pulse Resp B/P (MAP) Pulse Ox O2 O2 Flow FiO2 Time Delivery Rate 07/25/18 Nasal 2.0 08:00 Cannula 07/25/18 98.6 66 16 112/62 95 07:19 (79) 07/24/18 21 21:11 Intake and Output 07/24/18 07/24/18 07/25/18 1515:00 23:00 07:00 IntakeIntake Total 800 ml 500 ml BalanceBalance 800 ml 500 ml Exam Constitutional: alert, oriented Psych: no complaints, nl mood/affect Head: normocephalic, atraumatic Neck: supple; No jvd Respiratory: clear to auscultation; No crackles/rales Cardiovascular: regular rate and rhythm; No edema Gastrointestinal: soft, non-tender Neurological: nl mental status, nl speech Labs Result Diagram: 07/24/18 0444 07/25/18 0522 Results 24hrs Laboratory Tests Test 07/25/18 05:22 Sodium Level 137 Potassium Level 3.7 Chloride Level 102 Carbon Dioxide Level 26 Anion Gap 9 Blood Urea Nitrogen 34 H Creatinine 1.67 H Est Glomerular Filtrat Rate mL/min 44 L Glucose Level 120 Calcium Level 9.0 Medications Medications Current Medications IV Flush (NS 3 ml) 3 ml PER PROTOCOL IV ; Start 07/20/18 at 21:30 Ondansetron HCl (Zofran Inj) 4 mg Q6H PRN IV NAUSEA/VOMITING Last administered on 07/21/18at 09:55; Admin Dose 4 MG; Start 07/20/18 at 21:30 Acetaminophen (Tylenol Tab) 650 mg Q6H PRN PO .PAIN 1-3 OR TEMP Last administered on 07/24/18 13:21; Admin Dose 650 MG; Start 07/20/18 at 21:30 Acetaminophen/ Hydrocodone Bitart ([place] (5/325)) 1 tab Q6H PRN PO .MOD PAIN 4- 6 Last administered on 07/25/18 05:41; Admin Dose 1 TAB; Start 07/20/18 at 21:30 Morphine Sulfate (morphine) 2 mg Q4H PRN IV .SEVERE PAIN 7-10 Last administered on 07/23/18 04:56; Admin Dose 2 MG; Start 07/20/18 at 21:30 Docusate Sodium (Colace) 100 mg Q12H PRN PO .CONSTIPATION Last administered on 07/22/18 09:47; Admin Dose 100 MG; Start 07/20/18 at 21:30 Magnesium Hydroxide (Milk Of Mag) 30 ml DAILY PRN PO .CONSTIPATION; Start 07/20/18 at 21:30 Heparin Sodium (Porcine) (Heparin (5000 Units/1ml)) 5,000 unit Q12 SC Last administered on 07/25/18 08:42; Admin Dose 5,000 UNIT; Start 07/21/18 at 09:00 Lorazepam (Ativan) 0.5 mg Q6H PRN IV ANXIETY Last administered on 07/20/18 22:54; Admin Dose 0.5 MG; Start 07/20/18 at 21:30 Albuterol/ Ipratropium (Duoneb) 3 ml Q4H RESP THERAPY PRN HHN SHORTNESS OF BREATH; Start 07/20/18 at 21:30 Nitroglycerin (Nitroglycerin (Sl Tab) 0.4 Mg) 1 tab Q5M PRN SL ANGINA; Start 07/20/18 at 21:30 Hydralazine HCl (Apresoline) 10 mg Q4H PRN IV ELEVATED BLOOD PRESSURE Last administered on 07/24/18 11:15; Admin Dose 10 MG; Start 07/21/18 at 04:30 Amlodipine Besylate (Norvasc) 10 mg DAILY PO Last administered on 07/25/18 08:38; Admin Dose 10 MG; Start 07/21/18 at 04:30 Hydralazine HCl (Apresoline) 50 mg TID PO Last administered on 07/25/18 08:39; Admin Dose 50 MG; Start 07/22/18 at 09:00 Olanzapine (Zyprexa Zydis) 5 mg DAILY ODT Last administered on 07/25/18 08:38; Admin Dose 5 MG; Start 07/23/18 at 15:30 Docusate Sodium (Colace) 100 mg BID PO Last administered on 07/25/18 08:38; Admin Dose 100 MG; Start 07/23/18 at 21:00 Labetalol HCl (Normodyne) 400 mg Q8 PO Last administered on 07/25/18 05:41; Admin Dose 400 MG; Start 07/24/18 at 14:00 PHILL MCGOVERN Jul 25, 2018 10:42
[2018-07-25] MEDS ORDERED: LABE200T25 PO (13:12)
[2018-07-25] MEDS ORDERED: HYDR-3672 PO (13:12)
[2018-07-25] MEDS ORDERED: OLAN5TAB36 ODT (13:12)
[2018-07-25] MEDS ORDERED: AMLO-147 PO (13:12)
--- NOTE | 2018-07-25 13:15 | PDOCDIS ---
Discharge Instructions DIAGNOSIS Discharge Diagnosis CKD CONDITION [id number] Patient Condition: [id number] Stable FOLLOW UP/APPOINTMENTS Follow-up Plan It is crucial that you control your blood pressure. 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 I have also prescribed you one medication to take for abnormal thoughts called olanzapine You should see your primary care doctor TRIPP for management of your blood pressure, kidney disease, and mental health ZOHRA DE LA CRUZ MD Jul 25, 2018 13:15
--- NOTE | 2018-07-25 15:42 | DS ---
Date/Time of Note Date/Time of Note DATE: 07/25/18 TIME: 15:40 Discharge Summary Admission/Discharge Info Admit Date/Time Jul 20, 2018 at 20:18 Discharge Date/Time Discharge Diagnosis CKD Patient Condition: Stable Hospital Course Presented wtih stomach and chest pain after accidental ingestion of some sort of home pesticide substance. He was ruled out for ACS. He was extremely hypertensive and prescribed 3 meds to control his BP (amlodipine, hydralazine, and labetalol) which were continued at discharge. He was also with LIONEL which resolved to basleine. He demonstrated delusional thinking and was evaluated by pyschiatry who recommended olanzapine which was prescribed at discharge. I counseled him and his son he will need to have these medical issues monitored closely soon after discharge. Follow-up Plan It is crucial that you control your blood pressure. 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 I have also prescribed you one medication to take for abnormal thoughts called olanzapine You should see your primary care doctor TRIPP for management of your blood pressure, kidney disease, and mental health Primary Care Provider Not On Staff Doctor Pending Labs Laboratory Tests Test 07/25/18 05:22 Sodium Level 137 mmol/L (135-144) Potassium Level 3.7 mmol/L (3.5-5.1) Chloride Level 102 mmol/L (97-110) Carbon Dioxide Level 26 mmol/L (21-31) Anion Gap 9 (5-13) Blood Urea Nitrogen 34 mg/dl (7-20) Creatinine 1.67 mg/dl (0.61-1.24) Est Glomerular Filtrat Rate mL/min 44 mL/min (>60) Glucose Level 120 mg/dl (70-220) Calcium Level 9.0 mg/dl (8.4-10.2) ZOHRA DE LA CRUZ MD Jul 25, 2018 15:42
== END 2018-07-25 23:00 | disposition home or self-care (01) | DRG 305 ==
LOC: E/R 16:03 → 6WM 20:18
PROVIDERS: ADMIT Hospitalist; ATTEND Internal Medicine
DX: I16.0 Hypertensive urgency (principal); N17.9 Acute kidney failure, unspecified; G93.40 Encephalopathy, unspecified; Z91.14 Patient's other noncompliance with medication regimen; D72.829 Elevated white blood cell count, unspecified; E86.0 Dehydration; R00.0 Tachycardia, unspecified; Z72.0 Tobacco use; Z91.19 Patient's noncompliance with other medical treatment and regimen; I71.4 Abdominal aortic aneurysm, without rupture; M89.9 Disorder of bone, unspecified; F29 Unspecified psychosis not due to a substance or known physiological condition; N18.9 Chronic kidney disease, unspecified; T60.91XA Toxic effect of unspecified pesticide, accidental (unintentional), initial encounter
CPT/HCPCS: 36415; 71045; 71046; 74176; 76775; 80048; 80053; 80061; 80307; 81001; 81003; 82043; 83036; 83690; 83735; 84100; 84155; 84300; 84439; 84443; 84484; 85025; 87086; 93005; 93306; 96374; 96375; 97162; J0360; J1644; J1885; J1956; J2060; J2270; J2405; J7030

== ENCOUNTER 2018-07-27 20:44 | Emergency (ER) | payer OTHER ==
[~2018-07-27] VITALS: Ht 167.6 cm; Wt 56.6 kg
[~2018-07-27 20:44] MED LIST: AMLO-147 PO; HYDR-3672 PO; LABE200T25 PO; OLAN5TAB36 ODT
[2018-07-27 20:45] VITALS: Ht 167.6 cm; Wt 56.6 kg
[2018-07-27] MEDS ORDERED: morphine 4 MG/ML VIAL IV STA (22:18)
[2018-07-27] MEDS ORDERED: ONDANSETRON 4 MG INJ IV STA (22:18)
[2018-07-27] MEDS ORDERED: SOD CHLORIDE 0.9% 1,000 ML IV STA (22:18)
[2018-07-27] MEDS ORDERED: ACETAMINOPHEN 325 MG TAB PO ONE (22:30)
[2018-07-28] MEDS ORDERED: CEFEPIME 1GM/50 ML (PMX) 50 ML IVPB STA (01:08)
[2018-07-28] MEDS ORDERED: VANCOMYCIN 1 GM (PMX) 250 ML IVPB STA (01:08)
[2018-07-28] MEDS ORDERED: ONDANSETRON 4 MG INJ IV PRN ×2 (02:00→03:00)
[2018-07-28] MEDS ORDERED: ACETAMINOPHEN 325 MG TAB PO PRN ×2 (02:00→03:00)
--- NOTE | 2018-07-28 02:25 | ERD ---
ER Documentation Chief Complaint Chief Complaint AP X'S 1 DAY, DENIES VOMIT; + DIARRHEA HPI This is a 52-year-old male comes in with abdominal pain for continued. Denies vomiting. Does have mild diarrhea. Pain is in the left upper quadrant. Denies any other current complaints. Complains of mild cough along with this abdominal pain. Recently admitted to the hospital ROS All systems reviewed and are negative except as per history of present illness. Medications Home Meds Active Scripts Olanzapine* (Olanzapine* ODT) 5 Mg Tab.rapdis, 5 MG ODT DAILY for 60 Days, #60 TAB Prov:ZOHRA DE LA CRUZ MD 07/25/18 Hydralazine Hcl* (Apresoline*) 50 Mg Tab, 50 MG PO TID for 60 Days, #180 TAB 3 Refills Prov:ZOHRA DE LA CRUZ MD 07/25/18 Labetalol Hcl* (Labetalol Hcl*) 200 Mg Tablet, 400 MG PO Q8 for 60 Days, #180 TAB 3 Refills Prov:ZOHRA DE LA CRUZ MD 07/25/18 Amlodipine Besylate* (Amlodipine Besylate*) 10 Mg Tablet, 10 MG PO DAILY for 90 Days, #90 TAB 5 Refills Prov:ZOHRA DE LA CRUZ MD 07/25/18 Allergies Allergies: Coded Allergies: No Known Allergies (Verified Allergy, Unknown, 07/23/18) PMhx/Soc History of Surgery: Yes (LEFT LEG SURGERY UNKNOWN KIND) Anesthesia Reaction: No Hx Neurological Disorder: No Hx Respiratory Disorders: No Hx Cardiac Disorders: Yes (HTN) Hx Psychiatric Problems: No Hx Miscellaneous Medical Probl: No Hx Alcohol Use: No Hx Substance Use: Yes Hx Tobacco Use: Yes Smoking Status: Current every day smoker Physical Exam Vitals Vital Signs Date Temp Pulse Resp B/P (MAP) Pulse Ox O2 O2 Flow FiO2 Time Delivery Rate 07/28/18 70 21 122/67 95 Nasal 3.0 00:55 (85) Cannula 07/27/18 76 24 121/64 96 Nasal 3.0 23:30 (83) Cannula 07/27/18 100.0 66 18 146/70 92 20:45 (95) Physical Exam Const: No acute distress Head: Atraumatic Eyes: Normal Conjunctiva ENT: Normal External Ears, Nose and Mouth. Neck: Full range of motion. No meningismus. Resp: Clear to auscultation bilaterally Cardio: Regular rate and rhythm, no murmurs Abd: Soft, non tender, non distended. Normal bowel sounds Skin: No petechiae or rashes Back: No midline or flank tenderness Ext: No cyanosis, or edema Neur: Awake and alert Psych: Normal Mood and Affect Result Diagram: 07/27/18224407/27/182244 Results 24 hrs Laboratory Tests Test 07/27/18 22:35 07/27/18 22:45 07/27/18 23:42 Troponin I 0.038 ng/ml B-Type Natriuretic Peptide 3550 PG/ML White Blood Count 14.1 10^3/ul Red Blood Count 3.92 10^6/ul Hemoglobin 11.1 g/dl Hematocrit 34.2 % Mean Corpuscular Volume 87.2 fl Mean Corpuscular Hemoglobin 28.3 pg Mean Corpuscular 32.5 g/dl Hemoglobin Concent Red Cell Distribution Width 14.4 % Platelet Count 269 10^3/UL Mean Platelet Volume 10.4 fl Immature Granulocytes % 0.800 % Neutrophils % 75.3 % Lymphocytes % 9.5 % Monocytes % 11.1 % Eosinophils % 2.9 % Basophils % 0.4 % Nucleated Red Blood Cells % 0.0 /100WBC Immature Granulocytes # 0.110 10^3/ul Neutrophils # 10.7 10^3/ul Lymphocytes # 1.4 10^3/ul Monocytes # 1.6 10^3/ul Eosinophils # 0.4 10^3/ul Basophils # 0.1 10^3/ul Nucleated Red Blood Cells # 0.0 10^3/ul Sodium Level 142 mmol/L Potassium Level 4.0 mmol/L Chloride Level 103 mmol/L Carbon Dioxide Level 27 mmol/L Anion Gap 12 Blood Urea Nitrogen 31 mg/dl Creatinine 1.91 mg/dl Est Glomerular Filtrat 37 mL/min Rate mL/min Glucose Level 127 mg/dl Calcium Level 8.8 mg/dl Total Bilirubin 0.4 mg/dl Direct Bilirubin 0.00 mg/dl Indirect Bilirubin 0.4 mg/dl Aspartate Amino 92 IU/L Transf (AST/SGOT) Alanine 74 IU/L Aminotransferase (ALT/SGPT) Alkaline Phosphatase 167 IU/L Total Protein 7.5 g/dl Albumin 3.5 g/dl Globulin 4.00 g/dl Albumin/Globulin Ratio 0.87 Lipase 73 U/L Urine Color YELLOW Urine Clarity SLIGHTLY CLOUDY Urine pH 5.0 Urine Specific [place] 1.018 Urine Ketones NEGATIVE mg/dL Urine Nitrite NEGATIVE mg/dL Urine Bilirubin NEGATIVE mg/dL Urine Urobilinogen NEGATIVE mg/dL Urine Leukocyte Esterase NEGATIVE Krish/ul Urine Microscopic RBC 1 /HPF Urine Microscopic WBC 1 /HPF Urine Mucus FEW /HPF Urine Hemoglobin NEGATIVE mg/dL Urine Glucose NEGATIVE mg/dL Urine Total Protein 1+ mg/dl Current Medications Medications Dose Sig/Loi Start Time Status Last (Trade) Ordered Route PRN Stop Time Admin Dose Reason Admin Sodium 1,000 ml @ Q1H STAT 07/27/18 DC 07/27/18 Chloride 1,000 mls/hr IV 22:18 22:42 07/27/18 23:17 Morphine 4 mg ONCE STAT 07/27/18 DC 07/27/18 Sulfate IV 22:18 22:42 (morphine) 07/27/18 22:19 Ondansetron 4 mg ONCE STAT 07/27/18 DC 07/27/18 HCl (Zofran IV 22:18 22:42 Inj) 07/27/18 22:19 650 mg ONCE ONCE 07/27/18 DC 07/27/18 Acetaminophen PO 22:30 22:46 (Tylenol 07/27/18 22:31 Tab) Cefepime HCl 50 ml @ ONCE STAT 07/28/18 DC 07/28/18 100 mls/hr IVPB 01:08 01:19 07/28/18 01:37 Vancomycin 250 ml @ ONCE STAT 07/28/18 07/28/18 HCl 125 mls/hr IVPB 01:08 01:43 07/28/18 03:07 Ondansetron 4 mg ER BRIDGE 07/28/18 HCl (Zofran PRN IV 02:00 Inj) NAUSEA/VOMITI 07/29/18 01:59 NG 650 mg ER BRIDGE 07/28/18 Acetaminophen PRN PO 02:00 (Tylenol .MILD PAIN 07/29/18 01:59 Tab) 1-3 OR TEMP Procedures/MDM EKG: Rate/Rhythm: [Normal Sinus Rhythm] QRS, ST, T-waves: [No changes consistent w/ acute ischemia] Impression: [No evidence of ischemia or arrhythmia] Chest X-ray 1V Interpreted by me: Soft Tissue: No acute abnormalities Bones: No acute abnormalities Mediastinum/Cardiac Silhouette/Lungs: Right lower lobe infiltrate Medical decision making: This is a 52-year-old male comes in with complaints of cough and abdominal pain. He has evidence of pneumonia likely hospital-acquired given his recent hospital stay. Patient started on hospital acquired pneumonia protocol. No evidence of sepsis. Patient will be admitted to the hospitalist. Departure Diagnosis: Primary Impression: Pneumonia Pneumonia type: due to unspecified organism Laterality: unspecified laterality Lung location: unspecified part of lung Qualified Codes: J18.9 - Pneumonia, unspecified organism Condition: Serious ANDRÉS ARMSTRONG Jul 28, 2018 02:25
[2018-07-28] MEDS ORDERED: NITR0.4T39 SL (02:48)
[2018-07-28] MEDS ORDERED: DOCU-159 PO (02:48)
[2018-07-28] MEDS ORDERED: MAGN400O19 PO (02:48)
[2018-07-28] MEDS ORDERED: HYDR-4011 PO (02:48)
[2018-07-28] MEDS ORDERED: ACET325T45 PO (02:48)
[2018-07-28] MEDS ORDERED: LORA0.5T PO (02:48)
[2018-07-28] MEDS ORDERED: ONDA4TAB95 PO (02:48)
[2018-07-28] MEDS ORDERED: BISACODYL (EC) 5 MG TAB PO PRN (03:00)
[2018-07-28] MEDS ORDERED: VANCOMYCIN IV PER PHARMACY XX SCH (03:00)
[2018-07-28] MEDS ORDERED: NACL 0.9% 3 ML SYG IV SCH (03:00)
[2018-07-28] MEDS ORDERED: DOCUSATE SODIUM 100 MG CAP PO PRN (03:00)
[2018-07-28] MEDS ORDERED: HYDROmorphONE 1 MG/ML SYG IV STA (05:42)
[2018-07-28] MEDS ORDERED: ONDANSETRON 4 MG INJ IV STA (05:42)
--- NOTE | 2018-07-28 05:55 | HP ---
Date/Time of Note Date/Time of Note DATE: 07/28/18 TIME: 05:50 Assessment/Plan VTE Prophylaxis SCD applied (from Nsg): Yes Pharmacological prophylaxis: NA/contraindicated Pharm contraindication: low risk/ambulating Lines/Catheters IV Catheter Type (from Nrsg): Saline Lock Assessment/Plan Hospital Course This is a 52-year-old male being admitted to the floor for: #1 Hospital associated pneumonia: vancomycin and cefepime, await culture results. #2 intractable abdominal pain: Possibly secondary to severe constipation. CT abdomen pelvis otherwise unremarkable. Initiate bowel regimen, Colace, MiraLAX, enema #3 intractable lower back pain: MRI of the lumbar spine. Patient has rectal t one. No saddle anesthesia. #4 chronic kidney disease:, Continue home blood pressure medications, monitor renal function. Avoid NSAIDs. #5 hypertension: Continue patient's home blood pressure medications #6 transaminitis: We will obtain a RUQ quadrant ultrasound #7 recent psychosis: Continue olanzapine #8 infrarenal abdominal aortic aneurysm: CT shows: 3.2 x 3.2 cm is unchanged w ithout retroperitoneal hematoma to suggest rupture, moderate atherosclerotic calcification is again noted. Continue blood pressure control. Monitor as outpatient #9 DVT GI prophylaxis: SCDs, no GI prophylaxis indicated Further treatment strategy will be implemented as per the clinical course. Result Diagram: 07/27/18224407/27/185 Results 24hrs Laboratory Tests Test 07/27/18 22:35 07/27/18 22:45 07/27/18 23:42 Troponin I 0.038 B-Type Natriuretic Peptide 3550 H White Blood Count 14.1 H Red Blood Count 3.92 L Hemoglobin 11.1 L Hematocrit 34.2 L Mean Corpuscular Volume 87.2 Mean Corpuscular Hemoglobin 28.3 L Mean Corpuscular 32.5 Hemoglobin Concent Red Cell Distribution Width 14.4 Platelet Count 269 # Mean Platelet Volume 10.4 Immature Granulocytes % 0.800 H Neutrophils % 75.3 Lymphocytes % 9.5 L Monocytes % 11.1 H Eosinophils % 2.9 Basophils % 0.4 Nucleated Red Blood Cells % 0.0 Immature Granulocytes # 0.110 H Neutrophils # 10.7 H Lymphocytes # 1.4 Monocytes # 1.6 H Eosinophils # 0.4 Basophils # 0.1 Nucleated Red Blood Cells # 0.0 Sodium Level 142 Potassium Level 4.0 Chloride Level 103 Carbon Dioxide Level 27 Anion Gap 12 Blood Urea Nitrogen 31 H Creatinine 1.91 H Est Glomerular Filtrat 37 L Rate mL/min Glucose Level 127 Calcium Level 8.8 Total Bilirubin 0.4 Direct Bilirubin 0.00 Indirect Bilirubin 0.4 Aspartate Amino 92 H Transf (AST/SGOT) Alanine 74 H Aminotransferase (ALT/SGPT) Alkaline Phosphatase 167 H Total Protein 7.5 Albumin 3.5 Globulin 4.00 H Albumin/Globulin Ratio 0.87 Lipase 73 Urine Color YELLOW Urine Clarity SLIGHTLY CLOUDY A Urine pH 5.0 Urine Specific [place] 1.018 Urine Ketones NEGATIVE Urine Nitrite NEGATIVE Urine Bilirubin NEGATIVE Urine Urobilinogen NEGATIVE Urine Leukocyte Esterase NEGATIVE Urine Microscopic RBC 1 Urine Microscopic WBC 1 Urine Mucus FEW A Urine Hemoglobin NEGATIVE Urine Glucose NEGATIVE Urine Total Protein 1+ H HPI/ROS Admit Date/Time Admit Date/Time Hx of Present Illness Chief complaint: Abdominal pain, shortness of breath, back pain This is a 52-year-old male with a past medical history of hypertension, chronic kidney disease, and abdominal aortic aneurysm who presents today with complaints of abdominal pain x1 week. Patient was recently admitted to [facility] and discharged on 07/25 for hypertensive crisis and chronic kidney disease. Patient today presents with abdominal pain x1 week. Patient also reports that he has had a cough. He was brought today to the ER by his son. He reports that he has lower back pain as well and weakness in his right lower leg. He denies any urinary incontinence. He does reports that his last bowel movement was approximately 1 week ago. During patient's previous admission he was also seen by psychiatry for possible psychosis and was started on olanzapine Allergies: NKDA Medications: See Apr Const: As per HPI Eyes : No pain discharge or redness or change in visual acuity ENT: No pain, sore throat, congestion, congestion, dysphagia or discharge Respiratory: As per HPI Cardiovascular: No chest pain, palpitation, PND, or edema GI : As per HPI Genitourinary: No dysuria, hematuria, flank pain , discharge or CVA tenderness Musculoskeletal: As per HPI Skin: No rash, bruising or hives Neuro: No headache, dizziness, syncope, seizure, focal weakness Endocrine: No polyuria, polydipsia, temperature intolerance Psych: No hallucination, depression, anxiety or suicidal ideation PMH/Family/Social Past Medical History Hypertension, Kidney disease Infrarenal abdominal aortic aneurysm Medications Current Medications Ondansetron HCl (Zofran Inj) 4 mg ER BRIDGE PRN IV NAUSEA/VOMITING; Start 07/28/18 at 02:00; Stop 07/29/18 at 01:59 Acetaminophen (Tylenol Tab) 650 mg ER BRIDGE PRN PO .MILD PAIN 1-3 OR TEMP; Start 07/28/18 at 02:00; Stop 07/29/18 at 01:59 IV Flush (NS 3 ml) 3 ml PER PROTOCOL IV ; Start 07/28/18 at 03:00 Ondansetron HCl (Zofran Inj) 4 mg Q6H PRN IV NAUSEA/VOMITING; Start 07/28/18 at 03:00 Acetaminophen (Tylenol Tab) 650 mg Q6H PRN PO .PAIN 1-3 OR TEMP; Start 07/28/18 at 03:00 Docusate Sodium (Colace) 100 mg Q12H PRN PO .CONSTIPATION; Start 07/28/18 at 03:00 Bisacodyl (Dulcolax) 5 mg DAILY PRN PO .CONSTIPATION; Start 07/28/18 at 03:00 Heparin Sodium (Porcine) (Heparin (5000 Units/1ml)) 5,000 unit Q8 SC ; Start 07/28/18 at 06:00 Cefepime HCl 50 ml @ 100 mls/hr Q12 IVPB ; Start 07/28/18 at 09:00 Vancomycin HCl (Vanco Iv Per Pharmacy) VANCOMYCIN PER PHARMACY PER PROTOCOL XX ; Start 07/28/18 at 03:00 Vancomycin/Sodium Chloride 250 ml @ 125 mls/hr Q24H IVPB ; Start 07/29/18 at 01:00 Coded Allergies: No Known Allergies (Verified Allergy, Unknown, 07/28/18) Past Surgical History Past Surgical Hx: no surgical history Family History Significant Family History: no pertinent family hx Social History Alcohol Use: none Smoking Status: Current every day smoker Drug Use: none Exam/Review of Systems Vital Signs Vitals Vital Signs Date Temp Pulse Resp B/P (MAP) Pulse Ox O2 O2 Flow FiO2 Time Delivery Rate 07/28/18 71 18 117/69 97 Nasal 3.0 03:26 (85) Cannula 07/27/18 100.0 20:45 Exam Exam General: Patient is currently lying in bed, in moderate distress from lower back pain HEENT: Atraumatic, normocephalic. The pupils are equal, round and reactive. Extraocular motor are intact Neck: Supple with full range of motion. No rigidity or meningismus Chest: Nontender Lungs: Coarse breath sounds bilaterally, expiratory wheezing Heart: Normal S1-S2, Regular rhythm and rate. No murmur, S3, or S4 Abdomen: Tender tender, mildly distended bowel sounds are present. No guarding no rebound tenderness , No masses or organomegaly. No costovertebral temporal an gle mass Extremities: Normal to inspection, no edema no cyanosis Musculoskeletal: Tenderness palpation along the lumbar spine as well at the right paraspinal muscles Neurologic: Normal mental status, speech normal, cranial nerves II through XII are intact, motor and sensory are intact, no focal weakness, normal rectal tone Additional Comments PROCEDURE: CT abdomen and pelvis without contrast. CLINICAL INDICATION: Abdominal pain. TECHNIQUE: CT scan of the abdomen and pelvis without contrast was performed. Sagittal and coronal reformatted images were obtained from the axial source images. DICOM images are available. One or more of the following dose reduction techniques were used: Automated exposure control, adjustment of the mA and/or kV according to patient size, use of iterative reconstruction technique. CTDI = 4.30 mGy; DLP = 264.25 mGy-cm COMPARISON: 07/20/2018 FINDINGS: The study is limited because of motion artifact. Visualized lower thorax: Development of left lower lobe subsegmental atelectasis and a small left pleural effusion. Cardiomegaly is again noted. The right lung remains clear. The visualized ascending aorta again measures approximate 4.3 cm without evidence of intramural hematoma. Left anterior descending coronary artery atherosclerotic calcification is seen. There is a small pericardial effusion. Liver, gallbladder, pancreas and spleen: The liver is normal and size, contour and attenuation. There is no evidence for a liver mass or ductal dilatation. The gallbladder is contracted with wall thickening and calcifications possibly gallstones. No common bile duct abnormality is demonstrated. The pancreas is unremarkable. The spleen is normal in size. Adrenal glands and genitourinary system: The adrenal glands are normal bilaterally. A tiny 2 mm calculus in the lower pole of the right kidney is pre sent without hydronephrosis. The left kidney has a 3 mm lower pole calculus and a 4 mm interpolar calculus without hydronephrosis. The ureters are unremarkable. No urinary bladder abnormality is demonstrated. The prostate gland is normal in size. 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 Gastrointestinal system: The stomach is normal in caliber with no abnormality of significance. The small bowel is normal in caliber with no ileus, obstruction or wall thickening. The appendix and surrounding fat are within the limits of normal. Moderate amount of fecal debris throughout the colon is concerning for constipation. . There is no evidence for colitis or diverticulitis. Peritoneum, retroperitoneum, lymph nodes and vessels: Infrarenal abdominal aortic aneurysm of approximately 3.2 x 3.2 cm is again noted without retroperitoneal hematoma to suggest rupture. There is moderate aortic and iliac system atherosclerotic calcification. The inferior vena cava is unremarkable. There is no evidence for adenopathy or mass. There is no ascites. No pneumoperitoneum is present Osseous structures and musculoskeletal findings: There is no fracture, lytic or blastic lesion. Lower lumbar facet arthropathy is present. No muscular abnormality or soft tissue pathology is present. RPTAT:HJJR IMPRESSION: 1. The study is limited because of motion artifact. 2. 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 3. Development of left pleural effusion and left lower lobe subsegmental atelectasis. 4. Stable cardiomegaly, left coronary artery atherosclerotic calcification with ectasia of the ascending thoracic aorta. 5. Probable contracted gallbladder and cholelithiasis without certain cholecystitis. 6. Bilateral intrarenal calculi are unchanged without hydronephrosis. 7. Infrarenal abdominal aortic aneurysm of 3.2 x 3.2 cm is unchanged without retroperitoneal hematoma to suggest rupture, moderate atherosclerotic calcification is again noted. 8. Amount of fecal debris throughout the colon is concerning for constipation without colitis or bowel obstruction. Physician Almas Date Time Electronically viewed and signed by Physician Almas on 07/27/2018 23:02 JR/ CC: ANDRÉS ARMSTRONG [id number] PROCEDURE: Chest. CLINICAL INDICATION: Cough. TECHNIQUE: Single frontal view of the chest was obtained. COMPARISON: 07/21/2018. FINDINGS: The cardiac silhouette is enlarged. The aortic arch is unremarkable. There is mild pulmonary venous congestion. There is left basilar patchy infiltrate and small pleural effusion. There is no pneumothorax. IMPRESSION: Left basilar patchy infiltrate and small pleural effusion, new compared with the prior study. Cardiomegaly and mild pulmonary venous congestion, increased. .Shad Martinez MD, MD Date Time Electronically viewed and signed by .Shad Martinez MD, MD on 07/28/2018 01:03 .T/ CC: ANDRÉS ARMSTRONG [id number] YAIR MARIA Jul 28, 2018 05:55
[2018-07-28] MEDS ORDERED: LABETALOL 200 MG TAB PO SCH (06:00)
[2018-07-28] MEDS ORDERED: HEPARIN 5,000 UNIT/1 ML VIAL SC SCH (06:00)
[2018-07-28] MEDS ORDERED: BISACODYL 30 ML ENEMA PR ONE (06:00)
[2018-07-28] MEDS ORDERED: LORAZEPAM 0.5 MG TAB PO PRN (06:00)
[2018-07-28] MEDS ORDERED: FUROSEMIDE 20 MG INJ IV ONE (06:00)
[2018-07-28] MEDS: DOCUSATE SODIUM 100 MG CAP PO SCH ×2 (06:51→09:00)
[2018-07-28] MEDS: POLYETHYLENE GLYCOL 17 GM PACKET PO SCH ×2 (06:55→09:00)
[2018-07-28] MEDS ORDERED: OLANZAPINE (ODT) 5 MG TAB ODT SCH (09:00)
[2018-07-28] MEDS ORDERED: CEFEPIME 2GM/50 ML (PMX) 50 ML IVPB SCH (09:00)
[2018-07-28] MEDS ORDERED: AMLODIPINE 10 MG TAB PO SCH (09:00)
[2018-07-28] MEDS ORDERED: IOHEXOL 0 ML ONE (09:16)
[2018-07-28] MEDS ORDERED: SOD CHLORIDE 0.9% 100 ML ONE (09:16)
[2018-07-28] MEDS ORDERED: IODIXANOL LOCM 100 ML BTL ONE (09:23)
[2018-07-28] MEDS: ALBUTEROL/IPRATROPIUM (NEB) 3 ML AMP HHN SCH ×2 (10:00→13:00)
[2018-07-28] MEDS ORDERED: ESMOLOL 100 MG INJ IV STA (10:10)
[2018-07-28] MEDS ORDERED: ESMOLOL 250 ML IV STA (10:10)
--- NOTE | 2018-07-28 10:40 | QN ---
Documentation Comment 52-year-old male with a history of hypertension, chronic kidney disease and abdominal aortic aneurysm who presented to the ED last night with ongoing abdominal pain and was pending admission. At 08:50 received a call from the radiologist by Dr. Ricketts regarding results of an abdominal ultrasound which showed hypermobile thrombus within previously diagnosed abdominal aortic aneurysm and CT angiogram was recommended. CT angiogram findings as below reve aled an ascending and descending thoracic aneurysm with dissection. Esmolol bolus and drip initiated to maintain the heart rate less than 60 and a nicardipine drip will be added to maintain the blood pressure less than 120 mmHg systolic. Patient requires transfer to a higher level of care for cardiothoracic surgery and was ultimately accepted to [facility] by . Critical care transport is pending. Patient counseled regarding results of the studies and need for transfer. CRITICAL CARE TIME: Due to the high probability of sudden clinically significant hemodynamic and cardiovascular deterioration, this patient with ascending and descending thoracic aortic aneurysm with dissection required multiple, frequent reevaluations of vital signs and response to therapy. Additional critical care time was spent in review of labs and imaging studies as well as consultation with radiology and arranging for transfer to higher level of care. TOTAL CRITICAL CARE TIME: 35 minutes not including other separately reportable procedures. EK:31. Sinus rhythm. Ventricular rate 74. Normal KS and QRS. LVH. No ectopy. My interpretation. Laboratory Tests Test 07/27/18 22:35 07/27/18 22:45 07/27/18 23:42 07/28/18 05:50 Troponin I 0.038 ng/ml B-Type 3550 PG/ML Natriuretic Peptide White Blood 14.1 10^3/ul 14.4 10^3/ul Count Red Blood Count 3.92 10^6/ul 3.74 10^6/ul Hemoglobin 11.1 g/dl 10.8 g/dl Hematocrit 34.2 % 33.1 % Mean Corpuscular 87.2 fl 88.5 fl Volume Mean Corpuscular 28.3 pg 28.9 pg Hemoglobin Mean Corpuscular 32.5 g/dl 32.6 g/dl Hemoglobin Dayanara nt Red Cell 14.4 % 14.4 % Distribution Width Platelet Count 269 10^3/UL 256 10^3/UL Mean Platelet 10.4 fl 10.8 fl Volume Immature 0.800 % 0.600 % Granulocytes % Neutrophils % 75.3 % 65.0 % Lymphocytes % 9.5 % 17.5 % Monocytes % 11.1 % 13.4 % Eosinophils % 2.9 % 3.1 % Basophils % 0.4 % 0.4 % Nucleated Red 0.0 /100WBC 0.0 /100WBC Blood Cells % Immature 0.110 10^3/ul 0.090 10^3/ul Granulocytes # Neutrophils # 10.7 10^3/ul 9.4 10^3/ul Lymphocytes # 1.4 10^3/ul 2.5 10^3/ul Monocytes # 1.6 10^3/ul 1.9 10^3/ul Eosinophils # 0.4 10^3/ul 0.5 10^3/ul Basophils # 0.1 10^3/ul 0.1 10^3/ul Nucleated Red 0.0 10^3/ul 0.0 10^3/ul Blood Cells # Sodium Level 142 mmol/L 140 mmol/L Potassium Level 4.0 mmol/L 4.0 mmol/L Chloride Level 103 mmol/L 108 mmol/L Carbon Dioxide 27 mmol/L 25 mmol/L Level Anion Gap 12 7 Blood Urea 31 mg/dl 29 mg/dl Nitrogen Creatinine 1.91 mg/dl 1.64 mg/dl Est Glomerular 37 mL/min 45 mL/min Filtrat Rate mL/min Glucose Level 127 mg/dl 106 mg/dl Calcium Level 8.8 mg/dl 8.2 mg/dl Total Bilirubin 0.4 mg/dl 0.6 mg/dl Direct Bilirubin 0.00 mg/dl 0.00 mg/dl Indirect 0.4 mg/dl 0.6 mg/dl Bilirubin Aspartate Amino 92 IU/L 68 IU/L Transf (AST/SGOT ) Alanine 74 IU/L 61 IU/L Aminotransferase (ALT/SGPT) Alkaline 167 IU/L 137 IU/L Phosphatase Total Protein 7.5 g/dl 6.6 g/dl Albumin 3.5 g/dl 3.0 g/dl Globulin 4.00 g/dl 3.60 g/dl Albumin/Globulin 0.87 0.83 Ratio Lipase 73 U/L Urine Color YELLOW Urine Clarity SLIGHTLY CLOUDY Urine pH 5.0 Urine Specific 1.018 [place] Urine Ketones NEGATIVE mg/dL Urine Nitrite NEGATIVE mg/dL Urine Bilirubin NEGATIVE mg/dL Urine NEGATIVE mg/dL Urobilinogen Urine Leukocyte NEGATIVE Krish/ul Esterase Urine 1 /HPF Microscopic RBC Urine 1 /HPF Microscopic WBC Urine Mucus FEW /HPF Urine Hemoglobin NEGATIVE mg/dL Urine Glucose NEGATIVE mg/dL Urine Total 1+ mg/dl Protein Test 07/28/18 07:32 07/28/18 10:53 Urine Opiates Positive Screen Urine Negative Barbiturates Urine Negative Amphetamines Screen Urine Negative Benzodiazepines Screen Urine Cocaine Negative Screen Urine Positive Cannabinoids Prothrombin Time 14.0 Sec Prothrombin Time 1.1 Ratio INR 1.07 International Normalized Ratio Activated 50.0 Sec Partial Thrombop last Time Current Medications Medications Dose Sig/Loi Start Time Status Last (Trade) Ordered Route PRN Stop Time Admin Dose Reason Admin Sodium 1,000 ml @ Q1H STAT 07/27/18 DC 07/27/18 Chloride 1,000 mls/hr IV 22:18 22:42 07/27/18 23:17 Morphine 4 mg ONCE STAT 07/27/18 DC 07/27/18 Sulfate IV 22:18 22:42 (morphine) 07/27/18 22:19 Ondansetron 4 mg ONCE STAT 07/27/18 DC 07/27/18 HCl (Zofran IV 22:18 22:42 Inj) 07/27/18 22:19 650 mg ONCE ONCE 07/27/18 DC 07/27/18 Acetaminophen PO 22:30 22:46 (Tylenol 07/27/18 22:31 Tab) Cefepime HCl 50 ml @ ONCE STAT 07/28/18 DC 07/28/18 100 mls/hr IVPB 01:08 01:19 07/28/18 01:37 Vancomycin 250 ml @ ONCE STAT 07/28/18 DC 07/28/18 HCl 125 mls/hr IVPB 01:08 01:43 07/28/18 03:07 Ondansetron 4 mg ER BRIDGE 07/28/18 DC HCl (Zofran PRN IV 02:00 Inj) NAUSEA/VOMITI 07/28/18 10:19 NG 650 mg ER BRIDGE 07/28/18 DC Acetaminophen PRN PO 02:00 (Tylenol .MILD PAIN 07/28/18 10:19 Tab) 1-3 OR TEMP IV Flush 3 ml PER 07/28/18 (NS 3 ml) PROTOCOL IV 03:00 Ondansetron 4 mg Q6H PRN 07/28/18 HCl (Zofran IV 03:00 Inj) NAUSEA/VOMITI NG 650 mg Q6H PRN 07/28/18 Acetaminophen PO .PAIN 1-3 03:00 (Tylenol OR TEMP Tab) Docusate 100 mg Q12H PRN 07/28/18 Sodium PO 03:00 (Colace) .CONSTIPATION Bisacodyl 5 mg DAILY PRN 07/28/18 07/28/18 (Dulcolax) PO 03:00 06:51 .CONSTIPATION Heparin 5,000 unit Q8 SC 07/28/18 DC 07/28/18 Sodium 06:00 06:51 (Porcine) 07/28/18 10:10 (Heparin (5000 Units/1ml)) Cefepime HCl 50 ml @ Q12 IVPB 07/28/18 07/28/18 100 mls/hr 09:00 08:24 Vancomycin VANCOMYCIN PER 07/28/18 HCl (Vanco PER PHARMACY PROTOCOL XX 03:00 Iv Per Pharmacy) 250 ml @ Q24H IVPB 07/29/18 Vancomycin/So 125 mls/hr 01:00 dium Chloride 1 mg ONCE STAT 07/28/18 DC 07/28/18 Hydromorphone IV 05:42 05:46 HCl 07/28/18 05:43 (Dilaudid) Ondansetron 4 mg ONCE STAT 07/28/18 DC 07/28/18 HCl (Zofran IV 05:42 05:46 Inj) 07/28/18 05:43 Furosemide 20 mg ONCE ONCE 07/28/18 DC 07/28/18 (Lasix) IV 06:00 06:51 07/28/18 06:01 Albuterol/ 3 ml Q4H RESP 07/28/18 07/28/18 Ipratropium THERAPY HHN 09:00 10:00 (Duoneb) 17 gm DAILY PO 07/28/18 07/28/18 Polyethylene 06:00 06:55 Glycol (Miralax) Docusate 100 mg BID PO 07/28/18 07/28/18 Sodium 06:00 06:51 (Colace) Bisacodyl 30 ml ONCE ONCE 07/28/18 DC 07/28/18 (Fleet [place] 06:00 06:55 Bisacodyl 07/28/18 06:01 Enema) Amlodipine 10 mg DAILY PO 07/28/18 07/28/18 Besylate 09:00 08:25 (Norvasc) Hydralazine 50 mg TID PO 07/28/18 07/28/18 HCl 09:00 08:26 (Apresoline) Labetalol 400 mg Q8 PO 07/28/18 07/28/18 HCl 06:00 06:55 (Normodyne) Lorazepam 0.5 mg Q6 PRN PO 07/28/18 07/28/18 (Ativan) ANXIETY 06:00 11:12 Olanzapine 5 mg DAILY ODT 07/28/18 07/28/18 (Zyprexa 09:00 08:27 Zydis) IV Flush 10 ml STK-MED 07/28/18 DC 07/28/18 (NS 10 ml) ONCE .ROUTE 09:16 09:45 07/28/18 09:17 Sodium 100 ml @ ud STK-MED 07/28/18 DC 07/28/18 Chloride ONCE .ROUTE 09:16 09:45 07/28/18 09:17 Iohexol 0 ml @ ud STK-MED 07/28/18 DC ONCE .ROUTE 09:16 07/28/18 09:17 Iodixanol 100 ml STK-MED 07/28/18 DC 07/28/18 (Visipaque ONCE .ROUTE 09:23 09:46 Locm) 07/28/18 09:24 Esmolol HCl 15 mg ONCE STAT 07/28/18 DC 07/28/18 (Brevibloc) IV 10:10 10:45 07/28/18 10:21 Esmolol 250 ml @ ONCE STAT 07/28/18 07/28/18 HCl/ Sodium 50.94 mls/ IV 10:10 10:44 Chloride hr 07/28/18 15:04 Esmolol HCl 25 mg ONCE ONCE 07/28/18 DC 07/28/18 (Brevibloc) IV 11:30 11:34 07/28/18 11:31 Nicardipine 200 ml @ TITRATE IV 07/28/18 HCl 50 mls/hr 11:30 PROCEDURE: US Abdomen. CLINICAL INDICATION: Pain TECHNIQUE: Multiple real-time images were acquired of the patient's abdomen and retroperitoneum utilizing a high resolution transducer. COMPARISON: CT abdomen pelvis 07/27/2018 FINDINGS: The gallbladder is not visualized. Correlate surgical history. Common bile duct normal limits in size maximal transverse diameter 4.81 mm. No intrahepatic biliary ductal dilation. Liver normal in size maximal sagittal mention 15.83 cm. Normal liver parenchymal echogenicity without focal lesions. The right kidney is normal in size measuring 9.96 cm maximal sagittal dimension. Normal right renal parenchymal echogenicity without hydronephrosis intra renal mass or calculus. The pancreas is unremarkable. Normal portal venous flow. Note that the proximal abdominal aorta is borderline aneurysmal with a maximal transverse diameter 3 cm. Note however that there is mobile thrombus maximal AP diameter 2.3 cm within the proximal abdominal aorta. Recommend clinical correlation and consideration of a CT angiogram of the aorta for further evaluation. IMPRESSION: 1. Aneurysmal dilatation of the proximal abdominal aorta maximal transverse diameter 3 cm with a hypermobile thrombus with a AP diameter 3 cm. Recommend clinical correlation and a CT angiogram of the abdominal aorta for further evaluation. 2. Nonvisualization the gallbladder correlate surgical history. No biliary ductal dilation. 3. Unremarkable pancreas liver and right kidney. Addendum: Dr. Hammond was telephoned this results on 07/30/2018 May 849 hours. RPTAT:AAJJ Physician Justice Date Time Electronically viewed and signed by Physician Justice on 07/28/2018 08:59 BM/ PROCEDURE: CTA chest abdomen pelvis. CLINICAL INDICATION: Chest pain and shortness of breath TECHNIQUE: Continues 1.25 mm axial images were obtained from lung apices to the common femoral bifurcation following intravenous injection of 100 cc of Isovue 370. Images reconstructed in coronal, sagittal, and 3-D format using maximum intensity projection technique.. The calculated dose length product (DLP) = 327.57 mGy-cm. The CTDlvol = 4.27 mGy. One or more of the following dose reduction techniques were used: Automated exposure control, adjustment of the mA and or KV according to patient size, or use of iterative reconstruction technique. DICOM images are available. COMPARISON: CT abdomen pelvis dated 07/27/2018 FINDINGS: CTA : There is a intramural hematoma surrounding the ascending thoracic aorta from the level of the aortic root to the aortic arch and proximal descending thoracic aorta. The entire ascending thoracic aorta complex with hematoma measures 4.3 x 4.7 cm. The lumen of the ascending thoracic aorta measures 3.7 x 3.2 cm. No distinctive dissection flap is noted in the ascending thoracic aorta. A dissecting aneurysm is noted in the descending thoracic aorta originating in the proximal descending thoracic aorta extending to the infrarenal aorta where there is reentry. The descending thoracic dissecting aneurysm measures 3.6 x 3.9 cm in the midsegment, and 3.4 x 3.6 cm at the diaphragmatic hiatus.. There is classic branching anatomy of the great vessels. Normal origins are noted of all 3 great vessels. Visualized portions the common carotids are within normal limits. There is no dissection flap extending into the great vessels. No active bleeding or extravasation is seen. No mediastinal hematoma or pericardial effusion is identified. Bilateral coronary arteries opacify. There is mild plaquing in the left coronary artery. The false lumen of the descending thoracic dissection is thrombosis at the diaphragmatic hiatus level and causes marked compression of the true lumen compromising the flowing lumen by greater than 95%. There is fusiform aneurysmal dilatation throughout the abdominal aorta measuring 3.3 x 2.5 cm at the celiac level and 3.2 x 3.1 cm above the bifurcation.. As mentioned above, the false lumen in the supraceliac segment is thrombosed and causes marked compression of the true lumen by greater than 95%. There is a reentry of the dissection flap at the level of the renal arteries. There is a 6.7 mm abnormal collection of contrast adjacent to the right renal artery which may represent a pseudoaneurysm of the origin of the right renal artery versus a focus of contained extravasation. There is blood also surrounding the accessory right upper pole renal artery with narrowing of the lumen. The celiac trunk, SMA, MICAELA and bilateral renal arteries are supplied by the true lumen. No active extravasation into the retroperitoneal space is seen. Bilateral common iliac arteries and external iliac arteries are patent, without hemodynamically significant disease. Bilateral common femoral arteries are patent. Both internal iliac arteries are patent. Additional findings: There is moderate size left pleural effusion which is slightly hyperdense and may represent hemothorax. Associated left lower lobe consolidation and compressive changes are seen. Moderate central lobular emphysema is noted throughout the lungs. There is mild right basilar atelectasis. No right pleural fluid is seen. There is no pneumothorax. Heart chambers are moderately enlarged in size. There is moderate left coronary calcification. No pericardial effusion is seen. No large or central pulmonary emboli are identified. There are no pathologically enlarged mediastinal or axillary lymph nodes. Gallbladder is contracted. There is probable gallstone in the neck of the gallbladder. Questionable thickening is noted of the gallbladder wall versus contracted state. Correlation with ultrasound is recommended. Heterogeneous enhancement is noted of the liver which is likely due to early phase of scanning. Pancreas, spleen, and adrenals are within normal limits. There is we dge-shaped area of low-attenuation in the upper pole right kidney likely representing an area of infarction. The remaining segments of both kidneys enhance normally. No obstructive uropathy is seen. No pathologically enlarged mesenteric lymph nodes are seen. The stomach and small bowel loops are within normal limits. No small bowel dilatation or obstruction is seen. Small free fluid is now in the pelvis. No abscess or free air is identified. Bladder is normally distended grossly unremarkable. Prostate seminal vesicles are within normal limits. Evaluation of colon demonstrates no diverticulosis, diverticulitis or acute colitis. Moderate constipation is noted. IMPRESSION: 1. Extremely complex vascular picture. There is aneurysmal dilatation of the ascending thoracic aorta measuring 4.3 x 4.7 cm with intramural hematoma throughout the ascending thoracic aorta extending across the aortic arch.. In addition, there is aneurysmal dilatation throughout the descending thoracic aorta and abdominal aorta with the dissection flap seen originating in the proximal descending thoracic aorta and extending to the level of the renal arter ies. The false lumen of the dissection is thrombosed at the diaphragmatic hiatus level causing marked compression (greater than 95% of the true lumen). 2. The patient has two right renal arteries. There is an abnormal collection of contrast adjacent to the upper pole right renal artery which may represent a pseudoaneurysm or contained extravasation. There is also blood tracking along the superior pole accessory right renal artery. Question if the patient has had a recent procedure.. 3. The origins of the great vessels and bilateral coronary arteries demonstrate normal opacification . Moderate left coronary calcification is incidentally noted. 4. No mediastinal hematoma or pericardial effusion is seen.. 5. Note however there is a moderate size left pleural effusion which is slightly hyper dense. It is unclear whether this is represents a hemothorax. 6. No retroperitoneal hematoma is seen. 7. Small free fluid is noted intraperitoneally which appears simple. No abscess or free air 8. Wedge-shaped area of infarction in the upper pole right kidney. As mentioned above there is blood tracking along the right upper pole accessory renal artery causing attenuation of this vessel. 9. Celiac trunk, SMA, MICAELA, and bilateral renal arteries are supplied by the true lumen. 10. Left lower lobe compressive atelectasis/consolidation. 11. Moderate central lobular emphysema Call report was made to Dr. Hammond on 07/28/2018 9:56:17 AM RPTAT: HH .Renato Michelle MD, MD Date Time Electronically viewed and signed by .Renato Michelle MD, MD on 07/28/2018 10:19 .W/ ELODIA HAMMOND MD Jul 28, 2018 10:40
[2018-07-28] MEDS ORDERED: ESMOLOL 100 MG INJ IV ONE (11:30)
[2018-07-28] MEDS ORDERED: niCARdipine-NS 0.1MG/ML DRIP 200 ML IV SCH (11:30)
[2018-07-28 14:36] VITALS: BP 114/75; PULSE 72; RESP 18
[2018-07-29] MEDS ORDERED: VANCOMYCIN 750 MG (PMX) 250 ML IVPB SCH (01:00)
== END 2018-07-28 14:49 | disposition short-term general hospital (02) ==
LOC: E/R 20:44 → CANBEDREQ 07-28 16:42
DX: J18.9 Pneumonia, unspecified organism (principal); R10.12 Left upper quadrant pain; I10 Essential (primary) hypertension; F17.210 Nicotine dependence, cigarettes, uncomplicated
CPT/HCPCS: 36415; 71045; 71275; 74176; 75635; 76705; 80053; 80307; 81001; 83690; 83880; 84484; 85025; 85610; 85730; 87040; 93005; 94664; 96372; 96374; 96375; 96376; J0692; J1170; J1644; J1940; J2270; J2405; J3370; J7030; Q9967; Z7502; Z7610